=== PATIENT | female | born 1955 | race Hispanic/Latino ===

== ENCOUNTER 2017-07-08 22:14 | Emergency (ER) | payer MEDICARE | END 2017-07-08 23:23 | disposition home or self-care (01) | LOC: EDH 22:14 | DX: L02.211 Cutaneous abscess of abdominal wall (principal); E11.9 Type 2 diabetes mellitus without complications; E78.5 Hyperlipidemia, unspecified; I10 Essential (primary) hypertension; Z79.4 Long term (current) use of insulin; Z86.73 Personal history of transient ischemic attack (TIA), and cerebral infarction without residual deficits | CPT/HCPCS: 10060 ==

== ENCOUNTER 2017-09-17 09:40 | Emergency (ER) | payer MEDICARE ==
[2017-09-17 10:13] LABS: BASOPHILS % (AUTO) 0.7 % (0.0-5.0); HEMATOCRIT 37.3 % (36-48); LYMPHOCYTES % (AUTO) 19.3 % (21.0-51.0); MEAN CORPUSCULAR HEMOGLOBIN 28.1 pg (27.0-33.0); MEAN CORPUSCULAR HGB CONC 33.2 g/dL (32.0-36.0); MEAN CORPUSCULAR VOLUME 84.7 fL (79-99); MONOCYTES % (AUTO) 12.1 % (3.0-13.0); NEUTROPHILS % (AUTO) 66.9 % (40.0-77.0); PLATELET COUNT (AUTO) 333 K/uL (130-400); RED BLOOD CELL COUNT(AUTO) 4.41 MIL/uL (4.00-5.50); RED CELL DISTRIBUTION WIDTH 13.8 % (11.0-15.5); WHITE BLOOD COUNT (AUTO) 6.9 K/uL (4.8-10.8)
[2017-09-17 10:22] LABS: INR 0.95 (0.85-1.15)
[2017-09-17 10:23] LABS: CARBON DIOXIDE 27 mmol/L (21-32); CHLORIDE 100 mmol/L (101-111); GLOMERULAR FILTR. RATE CALC 60 mL/min (>60); GLUCOSE,RANDOM 164 mg/dL (70-105); POTASSIUM 4.5 mmol/L (3.5-5.1); SODIUM SERUM 135 mmol/L (136-145); UREA NITROGEN, BLOOD 17 mg/dL (7-18)
[2017-09-17 10:32] LABS: APPEARANCE,URINE Clear (CLEAR); BILIRUBIN,URINE Negative (NEGATIVE); COLOR,URINE Yellow (YELLOW); GLUCOSE, URINE (UA) Negative (NEGATIVE); KETONES,URINE Negative (NEGATIVE); LEUKOCYTE ESTERASE ,URINE Moderate (NEGATIVE); NITRATE,URINE Positive (NEGATIVE); OCCULT BLOOD,URINE Trace (NEGATIVE); PROTEIN,URINE Trace (NEGATIVE)
[2017-09-17 10:35] LABS: ALANINE AMINOTRANSFERASE 38 U/L (12-78); ALBUMIN 3.6 g/dL (3.5-5.0); AMYLASE 62 U/L (25-115); ASPARTATE AMINOTRANSFERASE 23 U/L (10-37); BILIRUBIN,TOTAL 0.2 mg/dL (0.2-1.0); CREATINE KINASE MB < 0.5 ng/mL (0.5-3.6); CREATINE KINASE, TOTAL 34 U/L (21-232); LIPASE 216 U/L (114-286)
[2017-09-17 10:38] LABS: BACTERIA,URINE Moderate /HPF (None Seen); RBC,URINE 0-1 /HPF (0-1); SQUAMOUS EPITHELIAL CELL,UR Few /HPF (0-2); YEAST,URINE BUDDING Few /HPF (None Seen)
[2017-09-17] MEDS ORDERED: LEVOFLOXACIN 500 MG/D5W 100 ML 100 ML ONE (12:54)
[2017-09-17] MEDS ORDERED: SODIUM CHLORIDE 0.9% 1000ML 1,000 ML IV ONE (12:54)
== END 2017-09-17 15:13 | disposition home or self-care (01) ==
LOC: EDH 09:40
DX: N39.0 Urinary tract infection, site not specified (principal); K52.9 Noninfective gastroenteritis and colitis, unspecified; E86.0 Dehydration; E11.9 Type 2 diabetes mellitus without complications; E78.5 Hyperlipidemia, unspecified; I10 Essential (primary) hypertension; Z79.4 Long term (current) use of insulin; Z86.73 Personal history of transient ischemic attack (TIA), and cerebral infarction without residual deficits
CPT/HCPCS: 36415; 80053; 81001; 82150; 82550; 82553; 83690; 84484; 85025; 85610; 85730; 87088; 87186; 93005; 96365; 99285; J1956; J7030

== ENCOUNTER 2018-03-06 16:20 | Emergency (ER) | payer MEDICARE ==
[2018-03-06] MEDS ORDERED: KETOROLAC TROMETHAMINE 60 MG/2 ML VIAL ONE (17:03)
== END 2018-03-06 17:35 | disposition home or self-care (01) ==
LOC: EDH 16:20
DX: M54.6 Pain in thoracic spine (principal); M62.838 Other muscle spasm; I10 Essential (primary) hypertension; E78.5 Hyperlipidemia, unspecified; E11.9 Type 2 diabetes mellitus without complications; Z86.73 Personal history of transient ischemic attack (TIA), and cerebral infarction without residual deficits; Z79.4 Long term (current) use of insulin
CPT/HCPCS: 96372; 99283; J1885

== ENCOUNTER 2018-05-30 13:29 | Observation (INO) | payer MEDICARE ==
[~2018-05-30] VITALS: Ht 160 cm; Wt 74.4 kg
[2018-05-30 15:15] LABS: BASOPHILS % (AUTO) 0.2 % (0.0-5.0); EOSINOPHILS % (AUTO) 0.7 % (0.0-8.0); HEMATOCRIT 32.7 % (36-48); LYMPHOCYTES % (AUTO) 12.6 % (21.0-51.0); MEAN CORPUSCULAR HEMOGLOBIN 28.2 pg (27.0-33.0); MEAN CORPUSCULAR VOLUME 85.5 fL (79-99); MONOCYTES % (AUTO) 10.4 % (3.0-13.0); NEUTROPHILS % (AUTO) 76.1 % (40.0-77.0); PLATELET COUNT (AUTO) 308 K/uL (130-400); RED BLOOD CELL COUNT(AUTO) 3.82 MIL/uL (4.00-5.50); RED CELL DISTRIBUTION WIDTH 13.9 % (11.0-15.5); WHITE BLOOD COUNT (AUTO) 12.6 K/uL (4.8-10.8)
[2018-05-30 15:30] LABS: POTASSIUM 4.6 mmol/L (3.5-5.1)
[2018-05-30 15:34] LABS: ALBUMIN 3.1 g/dL (3.5-5.0); BILIRUBIN,TOTAL 0.3 mg/dL (0.2-1.0); TOTAL PROTEIN, SERUM 7.1 g/dL (6.0-8.3)
[2018-05-30 15:35] LABS: CREATINE KINASE, TOTAL 93 U/L (21-232); MYOGLOBIN 28 ng/mL (10-92); TROPONIN I < 0.04 ng/mL (0.00-0.06)
[2018-05-30 16:35] LABS: APPEARANCE,URINE Cloudy (CLEAR); BILIRUBIN,URINE Negative (NEGATIVE); COLOR,URINE Yellow (YELLOW); GLUCOSE, URINE (UA) Negative (NEGATIVE); KETONES,URINE Trace mg/dL (NEGATIVE); LEUKOCYTE ESTERASE ,URINE Large (NEGATIVE); NITRATE,URINE Positive (NEGATIVE); OCCULT BLOOD,URINE Small (NEGATIVE); PROTEIN,URINE Negative (NEGATIVE)
[2018-05-30 16:55] LABS: BACTERIA,URINE Moderate /HPF (None Seen); RBC,URINE None Seen /HPF (0-1)
[2018-05-30] MEDS ORDERED: CEFTRIAXONE SODIUM 1 GM ONE (17:12)
[2018-05-30 17:41] LABS: INR 1.05 (0.85-1.15); PARTIAL THROMBOPLASTIN TIME 33.9 SEC (26.3-35.5)
[2018-05-30] MEDS: 1/2 NORMAL SALINE 1,000 ML IV SCH (18:00)
[2018-05-30] MEDS ORDERED: ENOXAPARIN SODIUM 30 MG/0.3 ML SQ SCH (18:00)
[2018-05-30] MEDS ORDERED: ACETAMINOPHEN EXTRA STRENGTH 500 MG TABLET ONE (19:40)
[2018-05-30] MEDS ORDERED: 1/2 NORMAL SALINE 1,000 ML IV ONE (19:41)
[2018-05-31 01:20] VITALS: BP 147/70
[2018-05-31] MEDS ORDERED: METF-446 PO (02:28)
[2018-05-31] MEDS ORDERED: SOTA80TA PO (02:28)
[2018-05-31] MEDS ORDERED: DILT120C12 PO (02:28)
[2018-05-31] MEDS ORDERED: LEVO50TA11 PO (02:31)
[2018-05-31] MEDS ORDERED: ATOR40TA71 PO (02:31)
[2018-05-31] MEDS ORDERED: LOSA25TA41 PO (02:31)
[2018-05-31] MEDS ORDERED: INSU10VI3 SQ ×2 (02:33)
[2018-05-31] MEDS ORDERED: APIX5TAB PO (02:33)
[2018-05-31] MEDS ORDERED: ACET-66 PO (02:36)
[2018-05-31] MEDS ORDERED: ACETAMINOPHEN 325 MG TAB PO PRN (03:15)
[2018-05-31] MEDS ORDERED: MORPHINE SULFATE 2 MG/ML 1ML SYG IVP PRN (03:15)
[2018-05-31 04:00] VITALS: BP 115/87
[2018-05-31 05:13] LABS: BASOPHILS % (AUTO) 0.4 % (0.0-5.0); CREATININE 0.8 mg/dL (0.5-1.5); EOSINOPHILS % (AUTO) 1.3 % (0.0-8.0); HEMATOCRIT 30.8 % (36-48); LYMPHOCYTES % (AUTO) 23.4 % (21.0-51.0); MEAN CORPUSCULAR HEMOGLOBIN 28.6 pg (27.0-33.0); MEAN CORPUSCULAR HGB CONC 33.4 g/dL (32.0-36.0); MEAN CORPUSCULAR VOLUME 85.6 fL (79-99); NEUTROPHILS % (AUTO) 63.9 % (40.0-77.0); NUCLEATED RED BLOOD CELLS 0.1 % (0.0-0.19); PLATELET COUNT (AUTO) 248 K/uL (130-400); POTASSIUM 3.9 mmol/L (3.5-5.1); RED CELL DISTRIBUTION WIDTH 13.8 % (11.0-15.5); WHITE BLOOD COUNT (AUTO) 8.1 K/uL (4.8-10.8)
[2018-05-31 08:04] VITALS: BP 146/73
[2018-05-31] MEDS: LEVOTHYROXINE 50 MCG TABLET PO SCH ×2 (09:00→09:42)
[2018-05-31] MEDS: CEFTRIAXONE SODIUM 1 GM IVP SCH (09:42)
[2018-05-31] MEDS: ATORVASTATIN CALCIUM 40 MG TABLET PO SCH (09:42)
[2018-05-31] MEDS: APIXABAN 5 MG TABLET PO SCH ×2 (09:42→21:00)
[2018-05-31] MEDS: SOTALOL HCL 80 MG TABLET PO SCH ×3 (09:43→21:00)
[2018-05-31] MEDS: DILTIAZEM HCL 120 MG CAP.SR.24H PO SCH ×2 (09:43→16:56)
[2018-05-31] MEDS: METFORMIN HCL 500 MG TABLET PO SCH ×2 (09:43→16:25)
[2018-05-31] MEDS: LOSARTAN 50 MG TABLET PO SCH (09:43)
[2018-05-31] MEDS: INSULIN HUMULIN 70/30 100 UNIT/ML 3ML SQ SCH (09:46)
[2018-05-31 11:03] VITALS: BP 140/62
[2018-05-31] MEDS: 1/2 NORMAL SALINE 1,000 ML IV SCH ×3 (11:05→23:15)
--- NOTE | 2018-05-31 14:14 | NUR ---
Nutrition Intervention: Nutrition notification as admit trigger. Pt admitted for sepsis, UTI. Currently on [id number] diet with good oral intake. Pt with no nutritional concerns with n/v/d, chewing or swallowing problems. LBM 05/31. Alb 3.1. Recommendations: Continue current diet therapy. Consult RD as nutrition concerns arise.
[2018-05-31 16:50] VITALS: BP 160/70
[2018-05-31] MEDS ORDERED: INSULIN HUMULIN 70/30 100 UNIT/ML 3ML SQ SCH (17:00)
[2018-05-31 20:00] VITALS: BP 143/60
--- NOTE | 2018-05-31 21:00 | NUR ---
MEDS PT REFUSED THE EVENING DOSE OF HER SOTALOL, CLAIMS OF TAKING IT A DOSE IN THE AFTERNOON. EXPLAINED THAT SHE WILL BE UNDERDOSED TODAY IF SHE WILL NOT TAKE HER EVENING MED. PT STATED SHE WILL TAKE MED IN AM. DUE ELIQUIS ADMINISTERED. KEPT RESTED AND COMFORTABLE IN BED. CALL LIGHT WITHIN REACH. FAMILY AT BEDSIDE. WILL MONITOR PT.
[2018-06-01] VITALS: BP 128/54
--- NOTE | 2018-06-01 02:00 | NUR ---
ROUNDS PT RESTING WELL, FAIRLY ASLEEP WITH RESPIRATIONS EVEN AND UNLABORED. NO NOTED DISTRESS. KEPT UNDISTURBED. WILL MONITOR PT.
[2018-06-01 04:00] VITALS: BP 142/64
[2018-06-01 04:04] LABS: BASOPHILS % (AUTO) 0.4 % (0.0-5.0); EOSINOPHILS % (AUTO) 3.9 % (0.0-8.0); HEMATOCRIT 29.6 % (36-48); LYMPHOCYTES % (AUTO) 31.4 % (21.0-51.0); MEAN CORPUSCULAR HEMOGLOBIN 28.1 pg (27.0-33.0); MEAN CORPUSCULAR HGB CONC 32.6 g/dL (32.0-36.0); MEAN CORPUSCULAR VOLUME 86.3 fL (79-99); MONOCYTES % (AUTO) 12.2 % (3.0-13.0); NEUTROPHILS % (AUTO) 52.1 % (40.0-77.0); PLATELET COUNT (AUTO) 269 K/uL (130-400); RED BLOOD CELL COUNT(AUTO) 3.43 MIL/uL (4.00-5.50)
[2018-06-01 05:07] LABS: CREATININE 0.8 mg/dL (0.5-1.5); POTASSIUM 3.9 mmol/L (3.5-5.1)
[2018-06-01] MEDS: CEFTRIAXONE SODIUM 1 GM IVP SCH (05:24)
--- NOTE | 2018-06-01 06:00 | NUR ---
ROUNDS PT ALREADY AWAKE, NO CONCERNS VERBALIZED. NO DISTRESS NOTED. KEPT RESTED. FOR MORE CARE.
--- NOTE | 2018-06-01 06:36 | NUR ---
MD DR ESTRELLA MEDS ROUNDS WITH D/C ORDERS. PLEASE REFER TO CPOE.
[2018-06-01] MEDS: DILTIAZEM HCL 120 MG CAP.SR.24H PO SCH (09:18)
[2018-06-01] MEDS: METFORMIN HCL 500 MG TABLET PO SCH (09:18)
[2018-06-01] MEDS: LEVOTHYROXINE 50 MCG TABLET PO SCH (09:18)
[2018-06-01] MEDS: ATORVASTATIN CALCIUM 40 MG TABLET PO SCH (09:18)
[2018-06-01] MEDS: SOTALOL HCL 80 MG TABLET PO SCH (09:18)
[2018-06-01] MEDS: APIXABAN 5 MG TABLET PO SCH (09:18)
[2018-06-01] MEDS: LOSARTAN 50 MG TABLET PO SCH (09:18)
[2018-06-01] MEDS: INSULIN HUMULIN 70/30 100 UNIT/ML 3ML SQ SCH (09:20)
[2018-06-01 09:36] VITALS: BP 140/67
--- NOTE | 2018-06-01 10:35 | NUR ---
DISCHARGE PATIENT GIVEN DISCHARGE INSTRUCTIONS AND EDUCATION, RX GIVEN TO THEM BY MD AND DAUGHTER ALREADY FILLED THIS AM. NO QUESTIONS RO CONCERNS VOICED AT THIS TIME. IV DISCONTINUED. CATHETER INTACT. NO SIGNS OF DISTRESS NOTED UPON DISCHARGE. PATIENT LEFT VIA WHEELCHAIR TO PRIVATE CAR WITH DAUGHTER AT SIDE. ALL BELONGINGS TAKEN. Addendum: 06/01/18 at 1102 by LUDA VALENZUELA RN RN Amended: Links added.
--- NOTE | 2018-06-01 10:51 | NUR ---
CM PT DCD TO HOME, STABLE NO CONCERNS VOICED BY PATIENT TO NURSE, NO TRIGGERS FOR CM. Addendum: 06/01/18 at 1053 by ERMIAS ARAGON RN CM Amended: Links added.
== END 2018-06-01 10:07 | disposition home or self-care (01) ==
LOC: EDH 13:29 → EDHIP 17:40 → 4CH 05-31 01:26
PROVIDERS: ADMIT Internal Medicine; ATTEND Internal Medicine
DX: N12 Tubulo-interstitial nephritis, not specified as acute or chronic (principal); R19.7 Diarrhea, unspecified; E11.9 Type 2 diabetes mellitus without complications; A41.9 Sepsis, unspecified organism; E78.5 Hyperlipidemia, unspecified; I10 Essential (primary) hypertension; I48.91 Unspecified atrial fibrillation; M19.90 Unspecified osteoarthritis, unspecified site; Z79.01 Long term (current) use of anticoagulants; Z86.73 Personal history of transient ischemic attack (TIA), and cerebral infarction without residual deficits
CPT/HCPCS: 36415 ×3; 71045; 80048 ×2; 80053; 81001; 82550; 82948 ×5; 83605 ×2; 83874; 84484; 85025 ×3; 85610; 85730; 87040; 87077; 87088; 87186; 87804 ×2; 87880; 93005; 96361 ×2; 96372 ×2; 96374; 96376; 99284; A4218 ×2; G0378 ×40; J0696 ×3; J1815 ×3

== ENCOUNTER 2018-09-30 10:46 | Inpatient (IN) | payer MEDICARE ==
[~2018-09-30] VITALS: Ht 154.9 cm; Wt 71.9 kg
[~2018-09-30 10:46] MED LIST: ACET-66 PO; APIX5TAB PO; ATOR40TA71 PO; DILT120C12 PO; INSU10VI3 SQ; LEVO50TA11 PO; LOSA25TA41 PO; METF-446 PO; SOTA80TA PO
[2018-09-30] MEDS ORDERED: MEROPENEM 500 MG VIAL ONE (12:03)
[2018-09-30] MEDS ORDERED: SODIUM CHLORIDE 0.9% 100 ML IV ONE (12:04)
[2018-09-30 13:20] VITALS: BP 148/80
[2018-09-30] MEDS ORDERED: ONDANSETRON HCL 4 MG/2 ML VIAL IVP PRN (14:00)
[2018-09-30 15:50] VITALS: BP 166/75
[2018-09-30] MEDS ORDERED: DIPH,PERTUSS(ACELL),TET VAC/PF 0.5 ML VIAL IM ONE (16:00)
[2018-09-30] MEDS ORDERED: VANCOMYCIN PROTOCOL PER PHARMACY IV SCH (16:00)
--- NOTE | 2018-09-30 16:35 | NUR ---
NURSING NOTE Received patient from ER in no distress, accompanied by her daughter Yaquelin. Patient assisted to bed. Orientation and admission done. Dr. Castro on the case. He came and obtained a sample from right 4th toe ulcer at amputation site and took sample to laboratory. Daughter made aware that medications need frequencies; stated she will have family member bring them.
[2018-09-30] MEDS ORDERED: SODIUM CHLORIDE 0.9% 250 ML IV ONE (18:09)
--- NOTE | 2018-09-30 18:30 | NUR ---
PICTURES Obtained pictures of both feet and filed in chart.
[2018-09-30] MEDS: VANCOMYCIN 1GM+NS 250ML 250 ML IV SCH (18:38)
[2018-09-30 19:00] VITALS: BP 149/70
[2018-09-30] MEDS: INSULIN HUMULIN R 100 UNIT/ML 3ML SQ SCH (20:36)
[2018-09-30 23:20] VITALS: BP 145/61
[2018-09-30] MEDS ORDERED: DULA1.5P SQ (23:43)
[2018-10-01 03:25] VITALS: BP 155/73
[2018-10-01 04:36] LABS: HEMATOCRIT 30.8 % (36-48); MEAN CORPUSCULAR HEMOGLOBIN 26.7 pg (27.0-33.0); MEAN CORPUSCULAR HGB CONC 32.6 g/dL (32.0-36.0); MEAN CORPUSCULAR VOLUME 81.9 fL (79-99); PLATELET COUNT (AUTO) 362 K/uL (130-400); RED BLOOD CELL COUNT(AUTO) 3.76 MIL/uL (4.00-5.50); WHITE BLOOD COUNT (AUTO) 7.1 K/uL (4.8-10.8)
[2018-10-01 04:55] LABS: ALBUMIN 3.1 g/dL (3.5-5.0); BILIRUBIN,TOTAL 0.3 mg/dL (0.2-1.0); CREATININE 0.9 mg/dL (0.5-1.5); POTASSIUM 4.4 mmol/L (3.5-5.1); TOTAL PROTEIN, SERUM 7.1 g/dL (6.0-8.3)
[2018-10-01] MEDS: INSULIN HUMULIN R 100 UNIT/ML 3ML SQ SCH ×4 (06:10→21:00)
[2018-10-01] MEDS: LEVOTHYROXINE 50 MCG TABLET PO SCH (08:54)
[2018-10-01] MEDS: APIXABAN 5 MG TABLET PO SCH ×2 (08:54→21:00)
[2018-10-01] MEDS: METFORMIN HCL 500 MG TABLET PO SCH ×2 (08:54→17:00)
[2018-10-01] MEDS: SOTALOL HCL 80 MG TABLET PO SCH ×2 (08:55→21:20)
[2018-10-01] MEDS: MEROPENEM 500 MG VIAL IVP SCH (08:55)
--- NOTE | 2018-10-01 08:56 | NUR ---
SOTALOL Refused morning medication stating her doctor changed her dose to once a day S/T she was getting dizzy. States her current dose is 80mg PO daily and that she is supposed to take it in the evening before dinner.
[2018-10-01] MEDS ORDERED: SOTA80TA PO (09:00)
[2018-10-01] MEDS ORDERED: ENOXAPARIN SODIUM 40 MG/0.4 ML SYRINGE SQ SCH (09:00)
[2018-10-01 09:05] VITALS: BP 123/63
[2018-10-01] MEDS: INSULIN HUMULIN 70/30 100 UNIT/ML 3ML SQ SCH ×2 (09:13→17:00)
[2018-10-01 12:04] VITALS: BP 131/71
--- NOTE | 2018-10-01 13:41 | NUR ---
Nutrition Intervention: Nutrition notification for decreased appetite as per pt's request. Pt admitted for diabetic right foot ulcer. Pt currently on CCD 75gm diet with 100% intake. Pt with toe amputation about 1month ago, reports unintended wt loss since then. Pt's son at bedside reports concerns for wt loss because pt decreased po intake. Pt states she feels better and appetite has returned. Emotional health may have contributed to decreased appetite as son reports pt was sad and may have gotten depressed after amputation. Will continue to monitor pt's nutritional status. Pt encouraged to eat high nutritious food to assist with wound healing. Recommendations: Continue current diet therapy. Consult [facility] as nutrition concerns arise. Addendum: 10/01/18 at [address] Amended: Links added.
[2018-10-01 15:59] VITALS: BP 155/76
--- NOTE | 2018-10-01 16:50 | NUR ---
HEALTH EDUCATOR Dr. Pickering at bedside doing dressing change and will do surgery tomorrow.
--- NOTE | 2018-10-01 17:02 | NUR ---
DIABETIC FOOT EDUCATION Printed education and gave to patient's daughter at bedside.
[2018-10-01] MEDS: VANCOMYCIN 1GM+NS 250ML 250 ML IV SCH (17:14)
--- NOTE | 2018-10-01 17:19 | NUR ---
CM NOTE cm attempted to speak to pt regarding d/c planning. Pt tearful and asked CM to return another time. CM to reattempt visit tomorrow.
--- NOTE | 2018-10-01 17:20 | NUR ---
BLOOD SUGAR Level is 87mg/dL. Patient refused her scheduled 70/30 insulin and her metformin. Patient is on regular insulin sliding scale # 2. Dr. Nogueira was paged to notify him and to request parameters; possibly decrease to sliding scale # 1.
[2018-10-01] MEDS ORDERED: GLUCAGON 1MG KIT 1 MG ML IM PRN (17:30)
[2018-10-01] MEDS ORDERED: DEXTROSE 50%-WATER 50 ML DISP.SYRIN IV PRN (17:30)
[2018-10-01 19:00] VITALS: BP 170/78
--- NOTE | 2018-10-01 19:45 | NUR ---
PM Assessment Received with family at the bedside, routine assessment done, plan of care discuss, confirm awareness re: plan surgery in AM, NPO post MN re-instructed. Pt currently denies discomfort, agreed to take a shower in AM at 0500.
--- NOTE | 2018-10-01 19:50 | NUR ---
CONSENT Obtained consent for surgery as ordered by Dr. Pickering and filed in chart. Also, obtained consent for disposal of amputated body part and in chart.
[2018-10-01] MEDS: ATORVASTATIN CALCIUM 40 MG TABLET PO SCH (21:20)
--- NOTE | 2018-10-01 21:25 | NUR ---
Re: Isidro Scheduled Isidro held tonight as pt scheduled for surgery for tomorrow.
[2018-10-01 23:25] VITALS: BP 141/68
[2018-10-02] VITALS (21 sets, daily range): BP systolic 111–186; BP diastolic 54–82
[2018-10-02] MEDS ORDERED: HYDROMORPHONE HCL 2 MG/ML VIAL IVP PRN (05:15)
[2018-10-02] MEDS: INSULIN HUMULIN R 100 UNIT/ML 3ML SQ SCH ×4 (05:48→21:00)
[2018-10-02] MEDS: METFORMIN HCL 500 MG TABLET PO SCH ×2 (07:28→18:05)
[2018-10-02] MEDS: APIXABAN 5 MG TABLET PO SCH ×2 (07:28→20:20)
[2018-10-02] MEDS: LEVOTHYROXINE 50 MCG TABLET PO SCH (07:28)
[2018-10-02] MEDS: INSULIN HUMULIN 70/30 100 UNIT/ML 3ML SQ SCH ×2 (07:28→18:10)
--- NOTE | 2018-10-02 08:32 | NUR ---
H&P Called (on-call for ) to inform him patient needs H&P because she is going for surgery. stated to call Dr. Tomlin because he had admitted patient. Informed that he is on-call for . stated to call to his cell and inform him;that would answer his cellphone. Left voicemail for explaining situation and to call nurse back at [phone]. Pending for to call back.
--- NOTE | 2018-10-02 09:35 | NUR ---
UPDATE Dr. Nogueira came and was updated. Stated he willdo H&P. Medical Records updated to put it on fast track.
[2018-10-02] MEDS: SOTALOL HCL 80 MG TABLET PO SCH ×2 (09:47→20:20)
[2018-10-02] MEDS: MEROPENEM 500 MG VIAL IVP SCH (09:47)
[2018-10-02] MEDS ORDERED: BUPIVACAINE/PF 0.5% 30ML VIAL ONE (10:08)
[2018-10-02] MEDS ORDERED: LIDOCAINE HCL 1% 20 ML VIAL ONE (10:08)
[2018-10-02] MEDS ORDERED: FENTANYL CITRATE PF 50 MCG/1 ML 2ML VIAL ONE (10:42)
[2018-10-02] MEDS ORDERED: MIDAZOLAM HCL 1 MG/ML 2ML VIAL ONE (10:42)
[2018-10-02] MEDS ORDERED: MORPHINE SULFATE 2 MG/ML 1ML SYG IVP PRN (16:45)
--- NOTE | 2018-10-02 17:05 | NUR ---
D/C PLAN CM spoke to pt and family regarding d/c planning. Pt states she lives alone. Denies having any home health services. States daughter named Yaquelin was assisting with wound care. Pt states she has provider who assists in care as well. Pt has been using cane for ambulation and denies having any other DME. CM explained possible need for short term SNF/rehab vs possibly returning home with home health. Pt is agreeable to MD recommendations. CM to f/u with final MD discharge recommendations. Addendum: 10/02/18 at 1708 by BRANDY ROLAND Amended: Links added.
[2018-10-02] MEDS: VANCOMYCIN 1GM+NS 250ML 250 ML IV SCH (18:05)
--- NOTE | 2018-10-02 18:59 | NUR ---
NURSING NOTE Patient went to have surgery for amputation of 3rd toe and third and 4th knuckles. Came back with wound vac at 125mmHg with small amount of serosanguinous drainage. Patient has been stable. Denied any pain or any need for pain medication. New hep lock to right forearm # 20g started for IV vancomycin administration. Site to left forearm removed; no issues.
[2018-10-02] MEDS: ATORVASTATIN CALCIUM 40 MG TABLET PO SCH (20:20)
[2018-10-03 03:00] VITALS: BP 135/55
[2018-10-03] MEDS: INSULIN HUMULIN R 100 UNIT/ML 3ML SQ SCH ×4 (06:33→21:00)
[2018-10-03 07:00] VITALS: BP 118/54
[2018-10-03] MEDS: MEROPENEM 500 MG VIAL IVP SCH (08:47)
[2018-10-03] MEDS: METFORMIN HCL 500 MG TABLET PO SCH ×2 (08:47→17:45)
[2018-10-03] MEDS: APIXABAN 5 MG TABLET PO SCH ×2 (08:49→19:56)
[2018-10-03] MEDS: SOTALOL HCL 80 MG TABLET PO SCH ×2 (08:49→19:57)
[2018-10-03] MEDS: LEVOTHYROXINE 50 MCG TABLET PO SCH (08:50)
[2018-10-03] MEDS: INSULIN HUMULIN 70/30 100 UNIT/ML 3ML SQ SCH ×2 (08:58→17:32)
[2018-10-03] MEDS: MORPHINE SULFATE 2 MG/ML 1ML SYG IVP PRN (10:36)
[2018-10-03 11:00] VITALS: BP 118/61
--- NOTE | 2018-10-03 14:30 | NUR ---
MD ROUNDS DR. DUFF ROUNDED AND RECOMMENDED PATIENT TO GO TO [facility] FOR WOUND CARE AND ANTIBIOTIC TREATMENTS. PER PATIENT AND DAUGHTER, DO NOT WANT TO TRANSFER TO A FACILITY AND WOULD LIKE TO BE DISCHARGED HOME. PER DAUGHTER, PATIENT'S HOME IS HANDICAP ACCESSIBLE AND SHE WILL BE ATTENDING THE PATIENT'S NEEDS. PATIENT AND FAMILY REQUESTING HOME HEALTH FOR ANTIBIOTICS AND WOUND CARE. PER DR. DUFF, THAT WILL BE FIND WELL, BUT HAVE DR. ESTRELLA MAKE THE FINAL DECISION.
--- NOTE | 2018-10-03 15:00 | NUR ---
dc planning spoke to pt again and to daughter that I spoke to Dr Castro and states he recommended to pt and daughter to go to [facility], for wound care and antibiotic therapy. they both wish to go home. do not want to go to any facility. daughter states she is able to take her and bring her to [facility] or wound care center as needed. and request set up with home health for wound care and iv antibiotics, pt has a wound vac in [facility]. will need to follwoup with dr tubbs and clarify final IV antiobiotic needs.
[2018-10-03 16:00] VITALS: BP 149/67
[2018-10-03] MEDS: VANCOMYCIN 1GM+NS 250ML 250 ML IV SCH ×2 (18:25→19:00)
[2018-10-03] MEDS: ATORVASTATIN CALCIUM 40 MG TABLET PO SCH (19:57)
[2018-10-03 20:59] VITALS: BP 157/69
[2018-10-03 23:37] VITALS: BP 123/53
[2018-10-04] MEDS: MORPHINE SULFATE 2 MG/ML 1ML SYG IVP PRN (01:34)
[2018-10-04 03:52] VITALS: BP 157/72
[2018-10-04] MEDS: HYDROMORPHONE HCL 0.5 MG/0.5 ML ML IVP PRN ×2 (04:53→22:14)
[2018-10-04] MEDS: INSULIN HUMULIN R 100 UNIT/ML 3ML SQ SCH ×4 (06:18→21:00)
[2018-10-04] MEDS: VANCOMYCIN 1GM+NS 250ML 250 ML IV SCH ×2 (06:18→20:20)
[2018-10-04 07:00] VITALS: BP 153/70
[2018-10-04] MEDS: LEVOTHYROXINE 50 MCG TABLET PO SCH (07:23)
[2018-10-04] MEDS: INSULIN HUMULIN 70/30 100 UNIT/ML 3ML SQ SCH ×2 (09:34→17:40)
[2018-10-04] MEDS: SOTALOL HCL 80 MG TABLET PO SCH ×2 (09:35→20:20)
[2018-10-04] MEDS: APIXABAN 5 MG TABLET PO SCH ×2 (09:35→20:20)
[2018-10-04] MEDS: MEROPENEM 500 MG VIAL IVP SCH (09:35)
[2018-10-04] MEDS: METFORMIN HCL 500 MG TABLET PO SCH ×2 (09:37→17:36)
[2018-10-04 11:00] VITALS: BP 115/60
[2018-10-04 16:00] VITALS: BP_SYST 115; BP_SYST 121; BP_SYST 150; BP_DIAS 63; BP_DIAS 72; BP_DIAS 93
[2018-10-04 20:00] VITALS: BP 139/67
[2018-10-04] MEDS: ATORVASTATIN CALCIUM 40 MG TABLET PO SCH (20:20)
--- NOTE | 2018-10-04 20:59 | NUR ---
POC POC blood sugar 44,pt asymptomatic.Stat gluose ordered.Pt given food.
--- NOTE | 2018-10-04 21:52 | NUR ---
RECHECK Blood sugar rechecked 90.
--- NOTE | 2018-10-04 22:23 | NUR ---
SEVERE PAIN Pt c/o severe pain to rt foot,medicated with Dilaudid.
--- NOTE | 2018-10-04 23:23 | NUR ---
MED EFFECT Pt resting quietly in bed,respirations even and unlabored.
[2018-10-05] VITALS (7 sets, daily range): BP systolic 127–159; BP diastolic 58–73
[2018-10-05] MEDS: HYDROCODONE/ACETAMINOPHEN 5/325 MG TAB PO PRN ×3 (05:32→22:41)
[2018-10-05] MEDS: INSULIN HUMULIN R 100 UNIT/ML 3ML SQ SCH ×4 (05:36→20:38)
[2018-10-05] MEDS ORDERED: LEVOTHYROXINE 50 MCG TABLET ONE (06:16)
[2018-10-05] MEDS: LEVOTHYROXINE 50 MCG TABLET PO SCH (06:18)
--- NOTE | 2018-10-05 06:34 | NUR ---
MD Dr Tomlin came to see pt.He's awaiting for Dr Castro to decide if pt can go home on po antibiotic.
--- NOTE | 2018-10-05 06:36 | NUR ---
VANCOMYCIN VANCOMYCIN DUE at 0700 not given yet,awaiting for Vanco through result drawn at 0600.
[2018-10-05] MEDS ORDERED: COMPOUND IV REFRIGERATED 1 EACH IVSOLN MISC PRN (08:00)
[2018-10-05] MEDS: MEROPENEM 500 MG VIAL IVP SCH (08:56)
[2018-10-05] MEDS: METFORMIN HCL 500 MG TABLET PO SCH ×2 (08:56→18:42)
[2018-10-05] MEDS: VANCOMYCIN 1GM+NS 250ML 250 ML IV SCH (08:56)
[2018-10-05] MEDS: SOTALOL HCL 80 MG TABLET PO SCH ×2 (09:00→20:36)
[2018-10-05] MEDS: APIXABAN 5 MG TABLET PO SCH ×2 (09:00→20:36)
[2018-10-05] MEDS: INSULIN HUMULIN 70/30 100 UNIT/ML 3ML SQ SCH ×2 (09:28→17:00)
--- NOTE | 2018-10-05 13:46 | NUR ---
PAIN LEVEL OF 6; STATES JUST WANTS NORCO, NO MORPHINE FOR NOW.
[2018-10-05] MEDS: ATORVASTATIN CALCIUM 40 MG TABLET PO SCH (20:36)
[2018-10-05] MEDS: VANCOMYCIN 750MG + NS 250 ML IV SCH ×2 (20:37)
[2018-10-06 04:04] VITALS: BP 128/62
[2018-10-06] MEDS: INSULIN HUMULIN R 100 UNIT/ML 3ML SQ SCH ×4 (06:46→21:00)
[2018-10-06 07:30] VITALS: BP 129/64
[2018-10-06] MEDS: LEVOTHYROXINE 50 MCG TABLET PO SCH (07:30)
[2018-10-06] MEDS: INSULIN HUMULIN 70/30 100 UNIT/ML 3ML SQ SCH ×2 (09:00→17:02)
--- NOTE | 2018-10-06 09:18 | NUR ---
CM Note: [facility] woundvac pending approval and delivery Spoke to Marjorie kitchen/[facility], pt pending approval and delivery. Aware MD pending to sign script and wound measurements, pending [facility] to change woundvac dressing today and for measurements. Primary nurse aware. CM to cont to follow up.
[2018-10-06] MEDS: VANCOMYCIN 750MG + NS 250 ML IV SCH ×4 (09:19→20:54)
[2018-10-06] MEDS: APIXABAN 5 MG TABLET PO SCH ×2 (09:20→20:55)
[2018-10-06] MEDS: MEROPENEM 500 MG VIAL IVP SCH (09:20)
[2018-10-06] MEDS: METFORMIN HCL 500 MG TABLET PO SCH ×2 (09:20→17:02)
[2018-10-06] MEDS: SOTALOL HCL 80 MG TABLET PO SCH ×2 (09:20→20:55)
--- NOTE | 2018-10-06 10:19 | NUR ---
CM Note: [facility] approval and acceptance Spoke to Danae kitchen/[facility], pt has approval and acceptance. Aware pending I approval and delivery and Dr Gloria dsouza for dc abx. Primary nurse aware. CM to cont to follow up.
[2018-10-06 11:00] VITALS: BP 134/58
--- NOTE | 2018-10-06 13:40 | NUR ---
WOUND [facility]ARE [facility] PRESENT TO CHANGE WOUND VAC TO RIGHT FOOT 3RD AND 4TH DIGITS. MEASUREMENTS TAKEN, 3.3 X 3.2 X 3.0. FAULTY CAMERA COULD NOT TAKE PHOTOS. [facility] (DIRECTOR) AWARE. PATIENT STABLE AT THIS TIME.
[2018-10-06] MEDS: HYDROMORPHONE HCL 0.5 MG/0.5 ML ML IVP PRN ×2 (14:12→21:56)
--- NOTE | 2018-10-06 14:44 | NUR ---
[facility] consult Patient assessed as ordered. Wound vac replaced as ordered. 3 pieces of foam used; one for wound and 2 for bridge. Vac resumed at 125mmHg continuous suction. Patient tolerated procedure without adverse effects or complaint. Addendum: 10/06/18 at 1445 by DORI RUSH RN/[facility] Amended: Links added.
[2018-10-06 16:00] VITALS: BP 138/67
[2018-10-06 19:00] VITALS: BP 160/78
[2018-10-06] MEDS: ATORVASTATIN CALCIUM 40 MG TABLET PO SCH (20:55)
[2018-10-07] VITALS (7 sets, daily range): BP systolic 119–160; BP diastolic 56–79
[2018-10-07] MEDS: HYDROMORPHONE HCL 0.5 MG/0.5 ML ML IVP PRN (05:50)
[2018-10-07] MEDS: INSULIN HUMULIN R 100 UNIT/ML 3ML SQ SCH ×4 (05:54→21:00)
[2018-10-07] MEDS: LEVOTHYROXINE 50 MCG TABLET PO SCH (06:01)
[2018-10-07] MEDS: INSULIN HUMULIN 70/30 100 UNIT/ML 3ML SQ SCH ×2 (08:16→18:20)
[2018-10-07] MEDS: METFORMIN HCL 500 MG TABLET PO SCH ×2 (08:19→18:21)
[2018-10-07] MEDS: APIXABAN 5 MG TABLET PO SCH ×2 (08:19→21:53)
[2018-10-07] MEDS: MEROPENEM 500 MG VIAL IVP SCH (08:19)
[2018-10-07] MEDS: SOTALOL HCL 80 MG TABLET PO SCH ×2 (08:19→21:53)
[2018-10-07] MEDS ORDERED: ***HM***(Dulaglutide (Trulicity) 1.5 MG) SQ SCH (09:00)
--- NOTE | 2018-10-07 10:10 | NUR ---
Nutrition Follow-up: Pt. s/p right 3rd toe/metatarsal amputation(10/02/18). Pt. on 75gm CCD diet with HS snack. Pt. reports fair p.o. intake; no c/o N/V. Labs reviewed(Alb 3.1). LBM: 10/04/18. SR-20, elastic. Recommendations: 1) Continue current diet. 2) Continue to monitor pt's nutritional status. 3) Consult RD as nutrition concerns arise. Addendum: 10/07/18 at [address] Amended: Links added.
--- NOTE | 2018-10-07 10:10 | NUR ---
CM Note: [facility] Wound[facility] pending approval and delivery CM spoke to Marjorie kitchen/[facility], received signed script, currently working on equipment at this time. Pending approval and delivery. Primary nurse aware. CM to cont to follow up.
[2018-10-07] MEDS: VANCOMYCIN 750MG + NS 250 ML IV SCH ×4 (11:31→22:00)
[2018-10-07] MEDS: HYDROCODONE/ACETAMINOPHEN 5/325 MG TAB PO PRN ×2 (15:17→22:04)
[2018-10-07] MEDS: ATORVASTATIN CALCIUM 40 MG TABLET PO SCH (21:53)
[2018-10-08] MEDS: HYDROMORPHONE HCL 0.5 MG/0.5 ML ML IVP PRN (00:21)
[2018-10-08 03:42] VITALS: BP 128/64
[2018-10-08] MEDS: INSULIN HUMULIN R 100 UNIT/ML 3ML SQ SCH ×4 (06:27→20:55)
[2018-10-08] MEDS: LEVOTHYROXINE 50 MCG TABLET PO SCH (06:30)
[2018-10-08 08:00] VITALS: BP 160/77
[2018-10-08] MEDS: INSULIN HUMULIN 70/30 100 UNIT/ML 3ML SQ SCH ×2 (09:08→17:00)
[2018-10-08] MEDS: APIXABAN 5 MG TABLET PO SCH ×2 (09:09→21:00)
[2018-10-08] MEDS: METFORMIN HCL 500 MG TABLET PO SCH ×2 (09:10→17:00)
[2018-10-08] MEDS: MEROPENEM 500 MG VIAL IVP SCH (09:10)
[2018-10-08] MEDS: SOTALOL HCL 80 MG TABLET PO SCH ×2 (09:10→21:00)
[2018-10-08] MEDS: VANCOMYCIN 750MG + NS 250 ML IV SCH ×4 (09:11→21:00)
[2018-10-08] MEDS: HYDROCODONE/ACETAMINOPHEN 5/325 MG TAB PO PRN ×3 (10:40→23:37)
[2018-10-08 11:29] VITALS: BP 158/70
--- NOTE | 2018-10-08 15:00 | NUR ---
[facility] Wound Vac: Spoke fidelina Beal @ [facility] this afternoon to f/u on status of wound vac. She mentions that it is pending for delivery and will send a message out to mail sorter and delivery. Primary nurse updated, will continue to follow.
[2018-10-08 16:00] VITALS: BP 148/67
--- NOTE | 2018-10-08 17:53 | NUR ---
[facility] WOUND VAC: Wound Vac at this time is still pending to be delivered, no callback received from delivery route driver either. Called [facility] again spoke w Melba (lead member) requesting update on delivery status. Per Francisco still pending verification from delivery team. States will send message to them. Primary nurse updated and provided w [facility] number.
--- NOTE | 2018-10-08 18:55 | NUR ---
CM note received call from [facility] , and inquired if wound vac needed to be delivered tonight. and informed him yes, that we were just waiting on his delivery of the wound vac to discharge pt today. states that they will deliver wound vac today in approximately 1 1/2 to 2 hrs. updated primary nurse Enriqueta.
--- NOTE | 2018-10-08 19:15 | NUR ---
Re: Wound vac availability Received report from Enriqueta RODRIGUEZ stated that she got a call from [facility] that the wound vac will be delivered more or less in 2 hours. Pt & family at the bedside made aware of this new progress. Pt verbalizes desire to go home tonight once wound vac will be available. I made her aware possibility after 2100 hours.
[2018-10-08 20:00] VITALS: BP 156/72
[2018-10-08] MEDS: ATORVASTATIN CALCIUM 40 MG TABLET PO SCH (20:59)
--- NOTE | 2018-10-08 22:55 | NUR ---
Re: Wound vac Phoned house kody Donovan RN requested assistance who I can call to obtain some information re: this wound vac issue. Benito Donovan RN stated to phoned Customer Service Manager Betina # [phone], done & per Betina stated since wound vac still not available then to keep the pt in house & she will advise the case picker in AM to call [facility]. I went ahead & search [facility] number via [employer], phoned [facility] # [phone] spoke with Amadeo & made him aware that I was inform that the wound vac has been approved & just pending delivery supposedly at 2100 earlier, but till this time we have not received anything. Benito Childs stated he will send notification for their dispatcher to call me FLIP as I made him aware that this is all we are waiting to d/c this case home. I obtain reference # [id number] for this case.
[2018-10-09] VITALS: BP 122/56
[2018-10-09 04:00] VITALS: BP 137/53
[2018-10-09] MEDS: INSULIN HUMULIN R 100 UNIT/ML 3ML SQ SCH (05:56)
[2018-10-09] MEDS: LEVOTHYROXINE 50 MCG TABLET PO SCH (06:39)
[2018-10-09 08:00] VITALS: BP 144/57
--- NOTE | 2018-10-09 08:10 | NUR ---
[facility]OUND[facility]: Informed this morning that wound vac is still pending to be delivered. Called placed to [facility] @ [phone] and spoke w electrical supervisor Ramirez. He was informed that as per conversations w [facility] yesterday wound vac was supposed to be delivered yesterday evening and no further communication was received regarding delay. Per Ramirez he will escalate request and send message to delivery wheel press clerk. Primary nurse updated.
[2018-10-09] MEDS: INSULIN HUMULIN 70/30 100 UNIT/ML 3ML SQ SCH (08:45)
[2018-10-09] MEDS: APIXABAN 5 MG TABLET PO SCH (08:47)
[2018-10-09] MEDS: SOTALOL HCL 80 MG TABLET PO SCH (08:48)
[2018-10-09] MEDS: METFORMIN HCL 500 MG TABLET PO SCH (08:48)
--- NOTE | 2018-10-09 11:15 | NUR ---
DISCHARGE PATIENT GIVEN DISCHARGE INSTRUCTIONS VIA TEACH BACK. 22G PIV TO RFA DISCONTINUED, TIP INTACT. RX GIVEN FOR ANTIBIOTICS AND PAIN MANAGEMENT. PATIENT TO FOLLOW UP WITH PCP AND DR. JACINTO. [facility] TO FOLLOW UP WITH PATIENT FOR WOUND VAC CHANGES TO RIGHT FOOT EVERY M/W/F AND PRN. REPORT GIVEN TO JENNA FRANKLIN RN FROM [facility] ON 10/08/18 AT 1850. [facility] DELIVERED WOUND VAC MACHINE AND SUPPLIES TO PATIENT'S ROOM. WOUND VAC MACHINES WERE EXCHANGED WITH CONTINUOUS SUCTION AT 125mmHg. PATIENT STABLE AT THIS TIME. PATIENT WHEELED DOWNSTAIRS BY LORRAINE VILLEDA ACCOMPANIED BY FAMILY.
== END 2018-10-09 11:15 | disposition home health service (06) | DRG 475 ==
LOC: EDH 10:46 → EDHIP 12:14 → 3AH 13:37
PROVIDERS: ADMIT Internal Medicine; ATTEND Internal Medicine
PROC: 3E0234Z Introduction of Serum, Toxoid and Vaccine into Muscle, Percutaneous Approach (ICD-10-PCS; 2018-09-30)
PROC: 0QBN0ZZ Excision of Right Metatarsal, Open Approach (ICD-10-PCS; 2018-10-02)
PROC: 0Y6M0ZC Detachment at Right Foot, Partial 3rd Ray, Open Approach (ICD-10-PCS; principal; 2018-10-02 11:13)
PROC: 0QBN0ZZ Excision of Right Metatarsal, Open Approach (ICD-10-PCS; 2018-10-02 11:13)
DX: T87.43 Infection of amputation stump, right lower extremity (principal); L03.115 Cellulitis of right lower limb; M86.171 Other acute osteomyelitis, right ankle and foot; L97.519 Non-pressure chronic ulcer of other part of right foot with unspecified severity; I10 Essential (primary) hypertension; D64.9 Anemia, unspecified; E11.69 Type 2 diabetes mellitus with other specified complication; E11.621 Type 2 diabetes mellitus with foot ulcer; E11.51 Type 2 diabetes mellitus with diabetic peripheral angiopathy without gangrene; E66.9 Obesity, unspecified; E78.5 Hyperlipidemia, unspecified; I25.10 Atherosclerotic heart disease of native coronary artery without angina pectoris; I48.91 Unspecified atrial fibrillation; L89.90 Pressure ulcer of unspecified site, unspecified stage; Y83.8 Other surgical procedures as the cause of abnormal reaction of the patient, or of later complication, without mention of misadventure at the time of the procedure; Y83.5 Amputation of limb(s) as the cause of abnormal reaction of the patient, or of later complication, without mention of misadventure at the time of the procedure; E11.42 Type 2 diabetes mellitus with diabetic polyneuropathy; Z79.4 Long term (current) use of insulin; Z83.3 Family history of diabetes mellitus; Z90.710 Acquired absence of both cervix and uterus; Z23 Encounter for immunization; Z89.421 Acquired absence of other right toe(s); Z68.30 Body mass index [BMI] 30.0-30.9, adult
CPT/HCPCS: 36415; 73630; 73718; 80053; 80202; 82947; 82948; 85027; 87070; 87076; 87205; 88304; 88311; 90715; 93926; 97039; G0378; J1170; J1815; J2185; J2250; J3010; J3370; J3490; J7030

== ENCOUNTER 2021-08-26 09:39 | Emergency (ER) | payer MEDICARE ==
[~2021-08-26] VITALS: Ht 154.9 cm; Wt 70.8 kg
[~2021-08-26 09:39] MED LIST changes: -ACET-66 PO; -DILT120C12 PO; +DULA1.5P SQ
[2021-08-26 09:49] VITALS: BP 126/60
[2021-08-26] MEDS ORDERED: ACET-2079 PO (10:29)
[2021-08-26] MEDS ORDERED: HYDROCODONE/ACETAMINOPHEN 10/325 MG TAB PO ONE (10:30)
== END 2021-08-26 10:57 | disposition home or self-care (01) ==
LOC: EDH 09:39
DX: L02.01 Cutaneous abscess of face (principal); E11.9 Type 2 diabetes mellitus without complications; E78.00 Pure hypercholesterolemia, unspecified; Z79.899 Other long term (current) drug therapy; Z79.4 Long term (current) use of insulin; Z79.84 Long term (current) use of oral hypoglycemic drugs; Z98.890 Other specified postprocedural states

== ENCOUNTER → 2021-09-10 | Outpatient (CLI) | payer MEDICARE ==
[~2021-09-10] MED LIST changes: +ACET-2079 PO
== END | disposition home or self-care (01) ==
LOC: SHCH 07:35
PROVIDERS: ATTEND Internal Medicine Cardiovascular Disease
DX: I51.7 Cardiomegaly (principal); R07.9 Chest pain, unspecified
CPT/HCPCS: 93306

== ENCOUNTER → 2021-09-15 | Outpatient (CLI) | payer MEDICARE ==
[~2021-09-15] VITALS: Ht 154.9 cm; Wt 73.5 kg
[~2021-09-15] MED LIST changes: +REGADENOSON 0.4 MG/5 ML PF SYG IVP SCH
== END | disposition home or self-care (01) ==
LOC: SHCH 07:58
PROVIDERS: ATTEND Internal Medicine Cardiovascular Disease
DX: R07.9 Chest pain, unspecified (principal)
CPT/HCPCS: 78452; 93017; 96374; A9500 ×2; J2785

== ENCOUNTER 2021-12-18 18:00 | Emergency (ER) | payer MEDICARE ==
[~2021-12-18] VITALS: Ht 152.4 cm; Wt 69.9 kg
[~2021-12-18 18:00] MED LIST changes: -REGADENOSON 0.4 MG/5 ML PF SYG IVP SCH
[2021-12-18 18:30] LABS: BASOPHILS % (AUTO) 0.5 % (0.0-5.0); EOSINOPHILS % (AUTO) 1.2 % (0.0-8.0); HEMATOCRIT 36.5 % (36-48); LYMPHOCYTES % (AUTO) 23.9 % (21.0-51.0); MEAN CORPUSCULAR HEMOGLOBIN 25.1 pg (27.0-33.0); MEAN CORPUSCULAR HGB CONC 31.8 g/dL (32.0-36.0); MEAN CORPUSCULAR VOLUME 78.8 fL (79-99); MONOCYTES % (AUTO) 11.8 % (3.0-13.0); NEUTROPHILS % (AUTO) 62.2 % (40.0-77.0); PLATELET COUNT (AUTO) 331 K/uL (130-400); RED BLOOD CELL COUNT(AUTO) 4.63 MIL/uL (4.00-5.50); RED CELL DISTRIBUTION WIDTH 15.4 % (11.0-15.5); WHITE BLOOD COUNT (AUTO) 9.7 K/uL (4.8-10.8)
[2021-12-18 18:51] LABS: CREATININE 1.1 mg/dL (0.5-1.5); POTASSIUM 4.5 mmol/L (3.5-5.1)
[2021-12-18 18:55] LABS: ALBUMIN 3.6 g/dL (3.5-5.0); MAGNESIUM 1.4 mg/dL (1.80-2.40)
[2021-12-18 18:57] LABS: B-TYPE NATRIURETIC PEPTIDE 61 pg/mL (0-100)
[2021-12-18 19:27] VITALS: BP 152/58
[2021-12-18] MEDS ORDERED: MORPHINE 2 MG SYG IVP ONE (19:30)
[2021-12-18] MEDS ORDERED: CYCLOBENZAPRINE HCL 10 MG TABLET PO ONE (19:30)
[2021-12-18] MEDS ORDERED: IBUP-1493 PO (20:17)
[2021-12-18] MEDS ORDERED: CYCL-309 PO (20:17)
[2021-12-18] MEDS ORDERED: MAGNESIUM 2GM PREMIX 50ML 50 ML IV SCH (20:30)
[2021-12-18] MEDS ORDERED: LIDOP TP (20:40)
== END 2021-12-18 21:22 | disposition home or self-care (01) ==
LOC: EDH 18:00
DX: M54.6 Pain in thoracic spine (principal); E11.9 Type 2 diabetes mellitus without complications; E78.00 Pure hypercholesterolemia, unspecified; Z98.890 Other specified postprocedural states; Z79.899 Other long term (current) drug therapy; Z79.84 Long term (current) use of oral hypoglycemic drugs; Z79.4 Long term (current) use of insulin; Z79.01 Long term (current) use of anticoagulants
CPT/HCPCS: 36415; 71045; 72040; 73030; 80053; 83735; 83880; 84484; 85025; 85378; 93005; 96374

== ENCOUNTER 2022-03-01 11:43 | Emergency (ER) | payer MEDICARE ==
[~2022-03-01] VITALS: Ht 157.5 cm; Wt 68.9 kg
[~2022-03-01 11:43] MED LIST changes: +CYCL-309 PO; +IBUP-1493 PO; +LIDOP TP
[2022-03-01 12:54] LABS: BASOPHILS % (AUTO) 0.6 % (0.0-5.0); EOSINOPHILS % (AUTO) 1.8 % (0.0-8.0); HEMATOCRIT 36.5 % (36-48); LYMPHOCYTES % (AUTO) 26.3 % (21.0-51.0); MEAN CORPUSCULAR HEMOGLOBIN 26.4 pg (27.0-33.0); MEAN CORPUSCULAR HGB CONC 31.8 g/dL (32.0-36.0); MONOCYTES % (AUTO) 20.9 % (3.0-13.0); PLATELET COUNT (AUTO) 279 K/uL (130-400); RED CELL DISTRIBUTION WIDTH 17.5 % (11.0-15.5); WHITE BLOOD COUNT (AUTO) 6.8 K/uL (4.8-10.8)
[2022-03-01 13:04] LABS: POTASSIUM 4.5 mmol/L (3.5-5.1)
[2022-03-01 13:08] LABS: MAGNESIUM 1.5 mg/dL (1.80-2.40); TOTAL PROTEIN, SERUM 7.1 g/dL (6.0-8.3)
[2022-03-01] MEDS ORDERED: LACTATED RINGERS 1000ML 1,000 ML IV ONE (14:00)
[2022-03-01] MEDS ORDERED: MAGNESIUM 2GM PREMIX 50ML 50 ML IV SCH (14:00)
[2022-03-01] MEDS ORDERED: LEVOFLOXACIN 500 MG TABLET PO SCH (16:00)
[2022-03-01 16:30] VITALS: BP 127/71
[2022-03-01] MEDS ORDERED: LEVO-70 PO (16:40)
[2022-03-01] MEDS ORDERED: DIPH1TAB PO (16:40)
== END 2022-03-01 17:01 | disposition home or self-care (01) ==
LOC: EDH 11:43
DX: A05.9 Bacterial foodborne intoxication, unspecified (principal); R19.7 Diarrhea, unspecified; E86.0 Dehydration; E83.42 Hypomagnesemia; E11.9 Type 2 diabetes mellitus without complications; E78.00 Pure hypercholesterolemia, unspecified; Z98.890 Other specified postprocedural states; Z79.899 Other long term (current) drug therapy; Z79.84 Long term (current) use of oral hypoglycemic drugs; Z79.01 Long term (current) use of anticoagulants; Z79.4 Long term (current) use of insulin
CPT/HCPCS: 99285; 96365; 83735; 84484; 80053; 85025; 36415; 93005; J3475; J7120

== ENCOUNTER 2023-02-28 17:00 | Inpatient (IN) | payer MEDICARE ==
[~2023-02-28] VITALS: Ht 157.5 cm; Wt 73.3 kg
[~2023-02-28 17:00] MED LIST changes: +DIPH1TAB PO; +LEVO-70 PO
[2023-02-28 17:53] LABS: BASOPHILS # (AUTO) 0.06 K/uL (0.00-0.20); BASOPHILS % (AUTO) 0.7 % (0.0-5.0); EOSINOPHILS # (AUTO) 0.16 K/uL (0.00-0.70); HEMATOCRIT 41.2 % (36-48); IMMATURE GRANULOCYTE ABSOLUTE 0.02 K/uL (0-1); LYMPHOCYTES # (AUTO) 2.5 K/uL (1.0-4.8); LYMPHOCYTES % (AUTO) 31.1 % (21.0-51.0); MEAN CORPUSCULAR HEMOGLOBIN 27.9 pg (27.0-33.0); MEAN CORPUSCULAR HGB CONC 31.8 g/dL (32.0-36.0); MEAN CORPUSCULAR VOLUME 87.8 fL (79-99); MONOCYTES # (AUTO) 0.8 K/uL (0.1-1.0); MONOCYTES % (AUTO) 10.3 % (3.0-13.0); NEUTROPHILS # (AUTO) 4.5 K/uL (1.8-7.7); NEUTROPHILS % (AUTO) 55.7 % (40.0-77.0); PLATELET COUNT (AUTO) 311 K/uL (130-400); RED BLOOD CELL COUNT(AUTO) 4.69 MIL/uL (4.00-5.50); RED CELL DISTRIBUTION WIDTH 13.7 % (11.0-15.5); WHITE BLOOD COUNT (AUTO) 8.1 K/uL (4.8-10.8)
[2023-02-28 18:01] LABS: CREATININE 1.1 mg/dL (0.5-1.5); POTASSIUM 4.4 mmol/L (3.5-5.1)
[2023-02-28 18:05] LABS: ALBUMIN 3.7 g/dL (3.5-5.0); BILIRUBIN,TOTAL 0.4 mg/dL (0.2-1.0); TOTAL PROTEIN, SERUM 7.9 g/dL (6.0-8.3)
[2023-02-28] MEDS ORDERED: IOHEXOL 350 MG/ML 100ML INFUS..BTL IV ONE (19:23)
[2023-02-28 20:24] LABS: APPEARANCE,URINE CLEAR (CLEAR); BILIRUBIN,URINE NEGATIVE (NEGATIVE); COLOR,URINE LIGHT-YELLOW (YELLOW); GLUCOSE, URINE (UA) >=1000 mg/dL (NEGATIVE); KETONES,URINE NEGATIVE (NEGATIVE); LEUKOCYTE ESTERASE ,URINE 75 Leu/uL (NEGATIVE); NITRATE,URINE NEGATIVE (NEGATIVE); OCCULT BLOOD,URINE NEGATIVE (NEGATIVE); PROTEIN,URINE NEGATIVE (NEGATIVE); UROBILINOGEN,URINE 0.2 mg/dL (0.2-1.0)
[2023-02-28 20:25] LABS: ADD UA MICROSCOPIC YES
[2023-02-28 20:26] LABS: BACTERIA,URINE MOD /HPF (None Seen); MUCUS,URINE FEW LPF (None Seen); RBC,URINE 0-1 /HPF (0-1); SQUAMOUS EPITHELIAL CELL,UR FEW /HPF (0-2)
[2023-02-28] MEDS ORDERED: 0.9%NACL 1000ML 1,000 ML IV SCH (23:00)
[2023-03-01] VITALS (9 sets, daily range): BP systolic 126–157; BP diastolic 61–91; PULSE 69–85; RESP 18–19; O2SAT 97–98
[2023-03-01] MEDS ORDERED: FERR-82 PO (01:42)
[2023-03-01] MEDS ORDERED: DAPA10TA PO (01:42)
[2023-03-01 04:00] LABS: BASOPHILS # (AUTO) 0.05 K/uL (0.00-0.20); BASOPHILS % (AUTO) 0.6 % (0.0-5.0); EOSINOPHILS % (AUTO) 2.2 % (0.0-8.0); HEMATOCRIT 40.4 % (36-48); IMMATURE GRANULOCYTE ABSOLUTE 0.03 K/uL (0-1); LYMPHOCYTES # (AUTO) 2.7 K/uL (1.0-4.8); LYMPHOCYTES % (AUTO) 30.2 % (21.0-51.0); MEAN CORPUSCULAR HEMOGLOBIN 28.2 pg (27.0-33.0); MEAN CORPUSCULAR HGB CONC 32.4 g/dL (32.0-36.0); MEAN CORPUSCULAR VOLUME 87.1 fL (79-99); MONOCYTES % (AUTO) 10.7 % (3.0-13.0); PLATELET COUNT (AUTO) 320 K/uL (130-400); RED BLOOD CELL COUNT(AUTO) 4.64 MIL/uL (4.00-5.50); RED CELL DISTRIBUTION WIDTH 13.6 % (11.0-15.5)
[2023-03-01 04:16] LABS: ALBUMIN 3.4 g/dL (3.5-5.0); BILIRUBIN,TOTAL 0.4 mg/dL (0.2-1.0); CREATININE 0.8 mg/dL (0.5-1.5); POTASSIUM 4.1 mmol/L (3.5-5.1); TOTAL PROTEIN, SERUM 7.4 g/dL (6.0-8.3)
[2023-03-01 04:19] LABS: HEMOGLOBIN A1C 6.9 % (4.0-6.0)
[2023-03-01] MEDS: ASPIRIN 81MG CHEW TAB PO SCH (09:10)
[2023-03-01] MEDS: ATORVASTATIN 40 MG TABLET PO SCH (09:10)
[2023-03-01] MEDS: FAMOTIDINE 20MG TAB PO SCH ×2 (09:10→19:47)
[2023-03-01] MEDS: CLOPIDOGREL 75MG TAB PO SCH (09:10)
[2023-03-01] MEDS ORDERED: SOTALOL HCL 80 MG TABLET PO SCH (16:30)
[2023-03-01] MEDS ORDERED: METFORMIN HCL 500 MG TABLET PO SCH (17:00)
[2023-03-01] MEDS ORDERED: INSULIN HUMULIN 70/30 100 UNIT/ML 3ML SQ SCH (17:00)
[2023-03-01] MEDS: APIXABAN 5 MG TABLET PO SCH (19:47)
[2023-03-02 04:09] VITALS: BP 144/75; PULSE 78; RESP 18
[2023-03-02 07:30] VITALS: O2SAT 96
[2023-03-02 08:00] VITALS: BP 111/59; PULSE 78; RESP 18
[2023-03-02] MEDS: CLOPIDOGREL 75MG TAB PO SCH (08:30)
[2023-03-02] MEDS: FAMOTIDINE 20MG TAB PO SCH (08:30)
[2023-03-02] MEDS: ATORVASTATIN 40 MG TABLET PO SCH (08:30)
[2023-03-02] MEDS: APIXABAN 5 MG TABLET PO SCH (08:30)
[2023-03-02] MEDS: ASPIRIN 81MG CHEW TAB PO SCH (08:31)
[2023-03-02] MEDS ORDERED: ATORVASTATIN 40 MG TABLET PO SCH (09:00)
[2023-03-02] MEDS ORDERED: LOSARTAN 25 MG TABLET PO SCH (09:00)
[2023-03-02] MEDS ORDERED: (Dapagliflozin Propanediol (Farxiga) 10 MG) PO SCH (09:00)
[2023-03-02] MEDS ORDERED: LEVOTHYROXINE 50 MCG TABLET PO SCH (09:00)
[2023-03-02] MEDS ORDERED: INSULIN HUMULIN 70/30 100 UNIT/ML 3ML SQ SCH (09:00)
[2023-03-02] MEDS ORDERED: NON-FORMULARY MEDICATION 1 EACH (Ferrous Sulfate (Iron) 325 MG) PO SCH (09:00)
[2023-03-02] MEDS ORDERED: FERROUS SULFATE 325 MG TABLET.DR PO SCH (09:00)
[2023-03-08] MEDS ORDERED: (Dulaglutide (Trulicity) 1.5 MG) SQ SCH (09:00)
== END 2023-03-02 10:12 | disposition home or self-care (01) | DRG 69 ==
LOC: EDH 17:00 → EDHIP 20:55 → 4AH 23:07
PROVIDERS: ADMIT Internal Medicine; ATTEND Internal Medicine
DX: G45.9 Transient cerebral ischemic attack, unspecified (principal); E11.9 Type 2 diabetes mellitus without complications; E78.00 Pure hypercholesterolemia, unspecified; I10 Essential (primary) hypertension; I48.91 Unspecified atrial fibrillation; E66.9 Obesity, unspecified; Z68.21 Body mass index [BMI] 21.0-21.9, adult; Z79.4 Long term (current) use of insulin; Z79.85 Long-term (current) use of injectable non-insulin antidiabetic drugs; Z89.421 Acquired absence of other right toe(s); Z89.411 Acquired absence of right great toe; Z79.01 Long term (current) use of anticoagulants; Z82.49 Family history of ischemic heart disease and other diseases of the circulatory system; Z83.3 Family history of diabetes mellitus
CPT/HCPCS: 36415; 70450; 70496; 70498; 70547; 70551; 71045; 80053; 80061; 81001; 82306; 82948; 83036; 84484; 85025; 87077; 87088; 87186; 92522; 92610; 93306; 93356; G0378; J1815; Q9967

== ENCOUNTER → 2023-06-28 | Outpatient (CLI) | payer MEDICARE ==
[~2023-06-28] MED LIST changes: -ACET-2079 PO; +CLOP75TA32 PO; -CYCL-309 PO; +DAPA10TA PO; -DIPH1TAB PO; +FERR-82 PO; +HONE15GE TP; -IBUP-1493 PO; +INSU3INS5 SQ; -LEVO-70 PO; -LIDOP TP
[2023-06-28 12:36] LABS: CHOLESTEROL 131 mg/dL (<200); HDL CHOLESTEROL 36 mg/dL (35-85); LDL DIRECT 76 mg/dL (0-99); TRIGLYCERIDES 128 mg/dL (30-200)
== END | disposition home or self-care (01) ==
LOC: LAB 08:52
PROVIDERS: ATTEND Internal Medicine Cardiovascular Disease
DX: E78.5 Hyperlipidemia, unspecified (principal)
CPT/HCPCS: 36415; 80061

== ENCOUNTER → 2023-07-10 | Outpatient (CLI) | payer MEDICARE | END | disposition home or self-care (01) | LOC: SHCH 15:33 | PROVIDERS: ATTEND Internal Medicine Cardiovascular Disease | DX: I65.23 Occlusion and stenosis of bilateral carotid arteries (principal) | CPT/HCPCS: 93880 ==

== ENCOUNTER 2024-12-27 17:52 | Inpatient (IN) | payer MEDICARE, MEDICAID ==
[~2024-12-27] VITALS: Ht 157.5 cm; Wt 67.6 kg
[2024-12-27 18:22] LABS: IMMATURE GRANULOCYTE ABSOLUTE 0.03 K/uL (0-1); NUCLEATED RED BLOOD CELLS 0.0 % (0.0-0.19); PLATELET COUNT (AUTO) 280 K/uL (130-400); RED BLOOD CELL COUNT(AUTO) 4.85 MIL/uL (4.00-5.50); RED CELL DISTRIBUTION WIDTH 14.6 % (11.0-15.5); WHITE BLOOD COUNT (AUTO) 7.8 K/uL (4.8-10.8)
--- NOTE | 2024-12-27 18:25 | ERN ---
ED Note History of Present Illness Stated Complaint: CP Chief Complaint: Chest Pain Time Seen by MD: 18:00 Dictation: 69-year-old female presents to ER complaints of chest pain, chest pressure and 1 episode of vomiting today. Patient states this chest pain started this morning around 10:00 a.m. and has resolved about 30-40 minutes ago. Patient denies shortness of breath, fever, cough. patient's primary doctor is Dr. estrella. With history of high cholesterol, HTN and diabetes Allergies: Coded Allergies: No Known Drug Allergies (Verified Allergy, Unknown, 05/30/18) Home Meds Reported Medications Honey (NameMedia) 80 % Gel..ml., 15 ML TP DAILY 06/10/23 Insuln Asp Prt/Insulin Aspart (Novolog Mix 70-30 Flexpen Syrn) 100 Unit/Ml (70- 30) Insuln.pen, 25 UNITS SQ HS 06/05/23 Clopidogrel Bisulfate (Clopidogrel) 75 Mg Tablet, 1 TAB PO DAILY 06/05/23 Ferrous Sulfate (Iron) 325 Mg (65 Mg Iron) Tablet, 325 MG PO DAILY, TAB 03/01/23 Dapagliflozin Propanediol (Farxiga) 10 Mg Tablet, 10 MG PO DAILY, TAB 03/01/23 Sotalol HCl (Sotalol) 80 Mg Tablet, 80 MG PO BID, TAB 10/01/18 Dulaglutide (Trulicity) 1.5 Mg/0.5 Ml Pen.injctr, 1.5 MG SQ QWEEK PT TAKES QWEDN09/30/18 Insuln Asp Prt/Insulin Aspart (Novolog Mix 70-30 Vial) 100 Unit/Ml (70-30) Vial, 20 UNITS SQ AM, VIAL 05/31/18 Apixaban (Eliquis) 5 Mg Tablet, 5 MG PO BID, TAB 05/31/18 Levothyroxine Sodium (Levothyroxine Sodium) 50 Mcg Tablet, 50 MCG PO ACBKFST, TAB 05/31/18 Losartan Potassium (Losartan Potassium) 25 Mg Tablet, 25 MG PO DAILY, TAB 05/31/18 Atorvastatin Calcium (Atorvastatin Calcium) 40 Mg Tablet, 40 MG PO HS, TAB 05/31/18 Metformin HCl (Metformin HCl) 1,000 Mg Tablet, 1000 MG PO BIDMEALS, TAB 05/31/18 Past Medical History Past Medical History: Diabetes-Type II, High Cholesterol, Hypertension Additional Past Medical Hx: THYROID Surgical History: BTL Surgical History Other: FEM POP , 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 Negative PALPITATIONS, AND EDEMA RESPIRATORY: NEGATIVE FOR SHORTNESS OF BREATH, COUGH, WHEEZING, AND PLEURITIC CHEST PAIN ABDOMEN/GI: NEGATIVE FOR ABDOMINAL PAIN, AND DIARRHEA. . Positive vomiting BACK: NEGATIVE FOR PAIN OR INJURY : NEGATIVE FOR INJURY, BLEEDING AND DISCHARGE MS/EXTREMITY: NEGATIVE FOR INJURY AND DEFORMITY SKIN: NEGATIVE FOR RASH, AND DISCOLORATION NEURO: NEGATIVE FOR HEADACHE, WEAKNESS, NUMBNESS, TINGLING, AND SEIZURE PSYCH: NEGATIVE FOR SUICIDE IDEATION, HOMICIDAL IDEATION, AND HALLUCINATIONS ALLERGY/IMMUNOLOGY: NEGATIVE FOR HIVES, RASH, AND ALLERGIES ALL SYSTEMS NEGATIVE, EXCEPT NOTED ABOVE. 13 POINT REVIEW OF SYSTEMS ASSESSED AND ALL NEGATIVE EXCEPT FOR ABOVE. Initial Vital Sign VS Vital Signs Date Time Temp Pulse Resp B/P (MAP) Pulse Ox O2 Delivery O2 Flow Rate FiO2 12/27/24 17:54 98.1 76 18 142/98 100 Room Air 0 12/27/24 19:00 21 Physical Exam Dictation General: awake, alert, NAD Head/Face: Normocephalic, atraumatic Eyes: PERRL, EOMI, vision at baseline ENT: oral cavity clear, TMs clear, no signs of infection Neck: Trachea midline, supple, no nuchal rigidity Cardiovascular: RRR, normal no JVD Respiratory: CTAB, no respiratory distress, No rales or wheezes Abdomen: Soft, non-tender, non-distended, normal bowel sounds, no guarding or rebound. Skin: Warm, dry, normal turgor, no rash MS/Extremity: Pulses equal, no cyanosis, neurovascular intact, FROM Neuro: COAx4, GCS 15, strength 5/5, CN 2-12 intact, normal cerebellar exam, normal gait, Psych: Normal behavior, mood, and affect normal Results (Laboratory/Radiology) Laboratory/Radiology Laboratory Tests Test 12/27/24 18:15 12/27/24 19:19 12/27/24 19:20 White Blood Count 7.8 K/uL (4.8-10.8) Red Blood Count 4.85 MIL/uL (4.00-5.50) Hemoglobin 13.9 g/dL (12.0-16.0) Hematocrit 44.0 % (36-48) Mean Corpuscular Volume 90.7 fL (79-99) Mean Corpuscular Hemoglobin 28.7 pg (27.0-33.0) Mean Corpuscular Hemoglobin Concent 31.6 g/dL (32.0-36.0) L Red Cell Distribution Width 14.6 % (11.0-15.5) Platelet Count 280 K/uL (130-400) Mean Platelet Volume 9.7 fL (7.5-10.5) Immature Granulocyte % (Auto) 0.4 % (0-1) Neutrophils (%) (Auto) 56.5 % (40.0-77.0) Lymphocytes (%) (Auto) 31.3 % (21.0-51.0) Monocytes (%) (Auto) 9.4 % (3.0-13.0) Eosinophils (%) (Auto) 1.8 % (0.0-8.0) Basophils (%) (Auto) 0.6 % (0.0-5.0) Neutrophils # (Auto) 4.4 K/uL (1.8-7.7) Lymphocytes # (Auto) 2.5 K/uL (1.0-4.8) Monocytes # (Auto) 0.7 K/uL (0.1-1.0) Eosinophils # (Auto) 0.14 K/uL (0.00-0.70) Basophils # (Auto) 0.05 K/uL (0.00-0.20) Absolute Immature Granulocyte (auto 0.03 K/uL (0-1) Nucleated Red Blood Cells 0.0 % (0.0-0.19) Sodium Level 142 mmol/L (136-145) Potassium Level 4.6 mmol/L (3.5-5.1) Chloride Level 106 mmol/L (101-111) Carbon Dioxide Level 25 mmol/L (21-32) Blood Urea Nitrogen 25 mg/dL (7-18) H Creatinine 1.2 mg/dL (0.5-1.0) H Glomerular Filtration Rate Calc 48 mL/min (>90) Random Glucose 135 mg/dL (70-105) H Total Calcium 8.9 mg/dL (8.5-10.1) Magnesium Level 1.70 mg/dL (1.80-2.40) L Total Creatine Kinase 34 U/L (21-232) # Troponin I High Sensitivity 112 ng/L (4-50) *H 192 ng/L (4-50) *H Urine Color LIGHT-YELLOW (YELLOW) Urine Appearance CLOUDY (CLEAR) H Urine pH 5.5 (5.0-8.0) Urine Specific [place]ike 1.026 (1.001-1.031) Urine Protein NEGATIVE mg/dL (NEGATIVE) Urine Glucose (UA) >=1000 mg/dL (NEGATIVE) H Urine Ketones NEGATIVE mg/dL (NEGATIVE) Urine Occult Blood NEGATIVE (NEGATIVE) Urine Nitrate 2+ (NEGATIVE) H Urine Bilirubin NEGATIVE mg/dL (NEGATIVE) Urine Urobilinogen 0.2 mg/dL (0.2-1.0) Urine Leukocyte Esterase 500 [place]/uL (NEGATIVE) H Urine RBC 11-25 /HPF (0-1) H Urine WBC 51-100 /HPF (0-1) H Urine WBC Clumps (Auto) FEW /HPF (0-1) Urine Squamous Epithelial Cells FEW /HPF (0-2) Urine Non-Squamous Epithelial Cells 3 /HPF (0-2) Urine Bacteria FEW /HPF (None Seen) Urine Hyaline Casts 0-1 /LPF (0-1 /LPF) ED Course ED Course Orders Procedure Category Date Status Time Cbc With Differential LAB 12/27/24 Complete 18:10 Chest 1vw RAD 12/27/24 Resulted 18:10 Magnesium LAB 12/27/24 Complete 18:10 Creatine Kinase, Total LAB 12/27/24 Complete 18:10 Troponin I High LAB 12/27/24 Complete Sensitivity 18:10 Urinalysis Profile LAB 12/27/24 Complete 18:10 Basic Metabolic Panel LAB 12/27/24 Complete 18:10 Aspirin 325mg Ec Tab PHA 12/27/24 Complete (Aspirin 325mg Ec T 19:00 Troponin I High LAB 12/27/24 Complete Sensitivity 18:54 12 Lead Ekg Tracing- EKG 12/27/24 Complete Technical 18:55 Culture Urine JAMI 12/27/24 In Process 19:39 Heparin 25,000 PHA 12/27/24 In Process Units/250ml D5w 20:00 Heparin 5,000 Unit PHA 12/27/24 Complete Vial (Heparin 5,000 U 20:00 Heparin 5,000 Unit PHA 12/27/24 Complete Vial (Heparin 5,000 U 19:56 Heparin 25,000 PHA 12/27/24 Complete Units/250ml D5w 19:56 12 Lead Ekg Tracing- EKG 12/27/24 Logged Technical 20:03 Vital Signs(Adult CPOE 12/27/24 Transmitted Hospitalist) 20:15 Nurse To Enter Home CPOE 12/27/24 Transmitted Medication 20:15 Admit Orders ADM 12/27/24 Transmitted 20:15 Pharmacy PHA 12/27/24 Complete Communication 20:30 Clopidogrel 75mg Tab PHA 12/27/24 Complete (Plavix 75mg) 20:30 Clopidogrel 75mg Tab PHA 12/28/24 In Process (Plavix 75mg) 09:00 Aspirin 81mg Ec Tab PHA 12/28/24 In Process (Aspirin 81mg Ec Tab 09:00 Nitroglycerin 0.4mg PHA 12/27/24 In Process Sl Tab (Nitrostat) 20:30 Cbc With Differential LAB 12/28/24 Verified 04:00 Comprehensive LAB 12/28/24 Verified Metabolic Panel 04:00 Continue Home CPOE 12/27/24 Transmitted Meds/Reviewed 20:15 Npo After Midnight DIANA 12/27/24 Transmitted 20:15 Cardiac Panel LAB 12/28/24 Verified 02:00 Cardiac Panel LAB 12/28/24 Verified 08:00 Cardiac Panel LAB 12/28/24 Verified 14:00 *Nursing CPOE 12/27/24 Transmitted Communication: 20:15 Current Medications Medications (Trade) Dose Ordered Sig/Emerson Route PRN Reason Start Time Stop Time Status Last Admin Dose Admin Aspirin (Aspirin 325mg Ec Tab) 325 mg ONCE ONCE PO 12/27/24 19:00 12/27/24 19:01 DC Heparin Sodium (Porcine) (HEParin 5,000 UNIT VIAL) 5,000 unit ONCE ONCE IV 12/27/24 20:00 12/27/24 20:01 DC 12/27/24 20:04 Heparin Sodium (Porcine) (HEParin 5,000 UNIT VIAL) 5,000 unit STK-MED ONCE .ROUTE 12/27/24 19:56 12/27/24 19:56 DC Heparin Sodium/ Dextrose 250 ml @ As Directed STK-MED ONCE IV 12/27/24 19:56 12/27/24 19:56 DC Heparin Sodium/ Dextrose 250 ml @ 0 mls/hr PROTOCOL IV 12/27/24 20:00 01/26/25 19:59 12/27/24 20:05 Vital Signs Date Time Temp Pulse Resp B/P (MAP) Pulse Ox O2 Delivery O2 Flow Rate FiO2 12/27/24 20:23 98.2 68 18 110/48 98 Room Air* 0 21 12/27/24 19:00 98.4 73 20 107/53 97 Room Air* 0 21 12/27/24 17:54 98.1 76 18 142/98 100 Room Air 0 Medical Decision Making MDM MDM: Differential diagnosis: Acute coronary syndrome, costochondritis, anxiety, Rationale: Tests considered and ordered secondary to shared decision making include: labs, ECG and radiology Previous outside records reviewed: Old ER visits. Risk of complication and/or morbidity or mortality of patient management: None Medications-Per medication reconciliation Need for hospitalization: Patient does meet criteria for hospitalization. Need for emergency major/minor surgery: No There are no social concerns with this patient. Prescription drug management Prescriptions will include symptomatic care Patient's prior external medical records from other ER visits were reviewed by me as indicated. Prior testing and results from previous visits were reviewed. Prior tests were taken into account with medical decision making and resource utilization, independent historian/historians were used to obtain complete medical history. I independently interpreted the test that were performed, results were reviewed by me and considered findings on radiology if ordered. Patient will be admitted to Dr. Unger who is on for Dr. estrella. Diagnosis acute coronary syndrome. We will contact Cardiology on-call to let them know troponin elevation, patient crusher is Dr. Alejo. Khoi is on-call DX & DISP Disposition: Inpatient Departure Impression: Primary Impression: Acute coronary syndrome Additional Impressions: Chest pain, Troponin level elevated, Non-STEMI (non- ST elevated myocardial infarction) Condition: Stable Assign Patient to: CONSULTED DR. DARNELL ON PATIENT . AWARE OF PATIENT CONDITION AND PATIENT IN ER. Additional Instructions: Spoke to Dr. UNGER accepting physician for admission Referrals: ROBERTA ESTRELLA MD (PCP) SRINIVASA SORIA Dec 27, 2024 18:25
[2024-12-27 18:31] LABS: CREATININE 1.2 mg/dL (0.5-1.0); GLOMERULAR FILTR. RATE CALC 48.0 mL/min (>90); GLUCOSE,RANDOM 135.0 mg/dL (70-105); SODIUM SERUM 142.0 mmol/L (136-145); UREA NITROGEN, BLOOD 25.0 mg/dL (7-18)
[2024-12-27 18:37] LABS: CREATINE KINASE, TOTAL 34.0 U/L (21-232)
--- NOTE | 2024-12-27 19:26 | HMCIMG ---
EXAM: XR Chest, 1 View. CLINICAL HISTORY: 69-year-old female with chest pain. COMPARISON: Prior XR Chest from 06/05/2023 at 3:35 PM. FINDINGS: LUNGS: The lungs are clear. No consolidation. PLEURAL SPACES: No pleural effusion or pneumothorax. HEART: The heart size is normal. BONES: No acute osseous abnormality. IMPRESSION: 1. No acute cardiopulmonary pathology. 2. Findings similar to prior XR Chest from 06/05/2023 at 3:35 PM. /[place]
[2024-12-27] MEDS: ASPIRIN 325MG EC TAB PO ONE (19:30)
[2024-12-27 19:38] LABS: APPEARANCE,URINE CLOUDY (CLEAR); GLUCOSE, URINE (UA) >=1000 mg/dL (NEGATIVE); LEUKOCYTE ESTERASE ,URINE 500 Leu/uL (NEGATIVE); NITRATE,URINE 2+ (NEGATIVE); OCCULT BLOOD,URINE NEGATIVE (NEGATIVE)
[2024-12-27 19:39] LABS: ADD UA MICROSCOPIC YES
[2024-12-27 19:43] LABS: HYALINE CASTS, URINE 0-1 /LPF (0-1 /LPF); NON-SQUAMOUS EPITHELIAL CELL 3 /HPF (0-2); SQUAMOUS EPITHELIAL CELL,UR FEW /HPF (0-2); WBC CLUMP FEW /HPF (0-1)
--- NOTE | 2024-12-27 20:15 | EKG ---
[facility] Test Date: 2024-12-27 Test Time: 19:53:45 Pat Name: ESTELLA BURK Department: ED Room: 205 Gender: F Refractory Manager: [id number] : 1955 Requested By: SRINIVASA SORIA Order Number: [id number] Reading MD: Enoc Westfall Measurements Intervals [place] Rate: 68 P: 10 AR: 165 QRS: 1 QRSD: 68 T: 5 QT: 407 QTc: 434 Interpretive Statements Sinus rhythm Compared to ECG 03/01/2022 12:31:53 No significant changes Electronically Signed On 12-28-2024 07:05:02 CDT by Enoc Westfall Please click the below link to view image of tracing.
[2024-12-27] MEDS ORDERED: NITROGLYCERIN 0.4 MG SL TAB SL PRN (20:30)
[2024-12-27] MEDS ORDERED: PHARMACY COMMUNICATION MISC SCH (20:30)
[2024-12-28] VITALS (14 sets, daily range): BP systolic 115–164; BP diastolic 56–85; PULSE 65–74; RESP 16–20; TEMP 97.9–98.7; O2SAT 98
--- NOTE | 2024-12-28 00:35 | NUR ---
REPORT GIVEN TO TERRI RN
[2024-12-28 01:45] LABS: IMMATURE GRANULOCYTE ABSOLUTE 0.02 K/uL (0-1); NUCLEATED RED BLOOD CELLS 0.0 % (0.0-0.19); PLATELET COUNT (AUTO) 251 K/uL (130-400); RED BLOOD CELL COUNT(AUTO) 4.45 MIL/uL (4.00-5.50); RED CELL DISTRIBUTION WIDTH 14.4 % (11.0-15.5); WHITE BLOOD COUNT (AUTO) 8.1 K/uL (4.8-10.8)
[2024-12-28 01:57] LABS: INR 1.07 (0.85-1.15)
[2024-12-28 02:03] LABS: ASPARTATE AMINOTRANSFERASE 18.0 U/L (10-37); CREATINE KINASE, TOTAL 38.0 U/L (21-232); CREATININE 1.0 mg/dL (0.5-1.0); GLOMERULAR FILTR. RATE CALC 60.0 mL/min (>90); GLUCOSE,RANDOM 98.0 mg/dL (70-105); SODIUM SERUM 141.0 mmol/L (136-145); TOTAL PROTEIN, SERUM 6.5 g/dL (6.0-8.3); UREA NITROGEN, BLOOD 25.0 mg/dL (7-18)
[2024-12-28] MEDS ORDERED: DONE5TAB33 PO (02:24)
--- NOTE | 2024-12-28 06:49 | EKG ---
[facility] Test Date: 2024-12-27 Test Time: 17:59:38 Pat Name: ESTELLA BURK Department: [facility] Room: 205 1 Gender: F Manager Code: [id number] : 1955 Requested By: SRINIVASA SORIA Order Number: [id number] Reading MD: Enoc Westfall Measurements Intervals [place] Rate: 76 P: 50 [place]: 153 QRS: 40 QRSD: 81 T: 35 QT: 398 QTc: 448 Interpretive Statements Sinus rhythm Anteroseptal infarct, age indeterminate Compared to ECG 03/01/2022 12:31:53 Myocardial infarct finding now present Electronically Signed On 12-28-2024 07:02:50 CDT by Enoc Westfall Please click the below link to view image of tracing.
[2024-12-28] MEDS ORDERED: LIDOCAINE HCL 400MG/20ML VIAL ONE (08:19)
[2024-12-28] MEDS ORDERED: NITROGLYCERIN 50MG VIAL ONE (08:19)
[2024-12-28] MEDS ORDERED: SODIUM BICARB 50MEQ 50ML VIAL 50 ML ONE (08:19)
[2024-12-28] MEDS ORDERED: HEParin-NS 1,000 UNIT/500 ML 1,000 ML IV ONE (08:19)
[2024-12-28] MEDS ORDERED: IOHEXOL 350 MG/ML 100ML INFUS..BTL IV ONE (08:19)
--- NOTE | 2024-12-28 08:25 | CONS ---
[facility] CARDIOLOGY CONSULTATION NOTE Date Patient Seen: Dec 28, 2024 Time of Visit: 08:19 Requesting Physician: [ ] Reason for Consultation: [ ] History of Present Illness: [Patient with complex cerebral vascular history of three strokes in 1999 and another in 2007, has had complete recovery from those events. Now she presents with retrosternal chest pressure and pain associated with shortness of breath that lasted about 5-6 hours. Troponins have risen to 600 and non-STEMI is confirmed. No symptoms since relief late yesterday afternoon. No prior symptoms of this type, no exertional symptoms. ] Past Medical History: [Three strokes in 1999, another in 2007, previous right hemiparesis which completely resolved Longstanding diabetes Longstanding hypertension Longstanding dyslipidemia No GI history ] Past Surgical History: [None ] Family History: [Both parents had coronary ] Social History: [Disease Finnish-speaking only, no vices, supportive family and daughter was contacted on the patient's cell phone and was very helpful and filling in bits of history ] Habits: [Never] smoker. [Denies] alcohol consumption. [Denies] illicit drug use Home Meds: [ ] Current Meds: [ ] Review of Systems: CONST: [No fever, fatigue, or weight changes.] EYES: [No recent vision problems.] ENT: [No congestion, ear pain, or sore throat.] C/V: [Admits chest pain, denies palpitations, or edema.] RESP: [No cough, congestion, wheezing but during chest pain only admits shortness of breath.] GI: [No abdominal pain, nausea, vomiting, constipation, or diarrhea. No history of gastritis, polyps, or ulcers] : [No dysuria.] SKIN: [No rash.] NEURO: [No headache, focal numbness or weakness, dizziness, or seizures.] PSYCH: [No depression or anxiety.] HEME: [No abnormal bruising or bleeding.] LYMPH: [No swollen glands.] Physical Examination: GENERAL: [No acute distress.] HEAD: [Normal with no signs of head trauma.] EYES: [PERRLA, EOMI, conjunctiva and sclera normal.] ENT: [Hearing grossly intact, normal oropharynx.] NECK: [Supple without JVD. There is no tenderness, lymphadenopathy, or masses. No thyromegaly. Normal carotid upstrokes without bruits.] LUNGS: [Clear breath sounds bilaterally. There are right basilar rales one third of the way up the chest. No wheezes, or rhonchi.] HEART: [Normal rate and rhythm. Normal S1 and S2 without mumurs, gallop or rub.] VASC: [Pedal pulses markedly diminished, radial and ulnar pulses also diminished.] ABD: [Bowel sounds normal, soft, nontender, no masses, no organomegaly. No audible bruits.] : [Not examined] LYMPH: [No lymphadenopathy noted.] EXT: [No clubbing, cyanosis or edema.] SKIN: [No rashes or lesions noted.] NEURO: [Awake, alert, and oriented x3. No focal sensory or strength deficits noted.] Vital Signs (last 8hr) Date Time Temp Pulse Resp B/P (MAP) Pulse Ox O2 Delivery O2 Flow Rate FiO2 12/28/24 08:00 98.8 68 20 137/65 97 Room Air 12/28/24 03:26 97.9 71 16 154/72 99 Room Air 12/28/24 00:56 98.1 66 16 149/59 94 Room Air 12/28/24 00:40 Room Air* 0 21 Laboratory: [ ] Hematology Labs: Test 12/28/24 01:35 Range/Units White Blood Count 8.1 4.8-10.8 K/uL Red Blood Count 4.45 4.00-5.50 MIL/uL Hemoglobin 12.6 12.0-16.0 g/dL Hematocrit 38.5 36-48 % Mean Corpuscular Volume 86.5 79-99 fL Mean Corpuscular Hemoglobin 28.3 27.0-33.0 pg Mean Corpuscular Hemoglobin Concent 32.7 32.0-36.0 g/dL Red Cell Distribution Width 14.4 11.0-15.5 % Platelet Count 251 130-400 K/uL Mean Platelet Volume 9.7 7.5-10.5 fL Immature Granulocyte % (Auto) 0.2 0-1 % Neutrophils (%) (Auto) 48.6 40.0-77.0 % Lymphocytes (%) (Auto) 38.1 21.0-51.0 % Monocytes (%) (Auto) 10.3 3.0-13.0 % Eosinophils (%) (Auto) 2.2 0.0-8.0 % Basophils (%) (Auto) 0.6 0.0-5.0 % Neutrophils # (Auto) 4.0 1.8-7.7 K/uL Lymphocytes # (Auto) 3.1 1.0-4.8 K/uL Monocytes # (Auto) 0.8 0.1-1.0 K/uL Eosinophils # (Auto) 0.18 0.00-0.70 K/uL Basophils # (Auto) 0.05 0.00-0.20 K/uL Absolute Immature Granulocyte (auto 0.02 0-1 K/uL Nucleated Red Blood Cells 0.0 0.0-0.19 % Chemistry Labs: Test 12/28/24 01:35 12/27/24 18:15 Range/Units Sodium Level 141 136-145 mmol/L Potassium Level 3.9 3.5-5.1 mmol/L Chloride Level 106 101-111 mmol/L Carbon Dioxide Level 24 21-32 mmol/L Blood Urea Nitrogen 25 H 7-18 mg/dL Creatinine 1.0 0.5-1.0 mg/dL Glomerular Filtration Rate Calc 60 >90 mL/min Random Glucose 98 70-105 mg/dL Total Calcium 8.5 8.5-10.1 mg/dL Total Bilirubin 0.4 0.2-1.0 mg/dL Aspartate Amino Transf (AST/SGOT) 18 10-37 U/L Alanine Aminotransferase (ALT/SGPT) 18 12-78 U/L Alkaline Phosphatase 62 50-136 U/L Total Creatine Kinase 38 21-232 U/L Troponin I High Sensitivity 687.9 *H 4-50 ng/L Total Protein 6.5 6.0-8.3 g/dL Albumin 3.1 L 3.5-5.0 g/dL Magnesium Level 1.70 L 1.80-2.40 mg/dL Coagulation Labs: Test 12/28/24 01:35 Range/Units Prothrombin Time 11.3 9.6-11.6 SEC Prothromb Time International Ratio 1.07 0.85-1.15 Activated Partial Thromboplast Time > 139.0 *H 26.3-35.5 SEC Diagnostics / Radiology: [Copy/Paste Echos/Imaging Report here] Assessment: [Diabetic with multiple prior strokes, none in the last 10 years, probably also has peripheral vascular disease as assessed by exam. Now she presents with non- STEMI and likely has significant coronary disease, requires invasive evaluation. ] Plan: [Patient and daughter verbalized understanding and acceptance of the risks and benefits of cardiac catheterization and possible PTCA/stent. They also understand that surgery could be necessary. ] CORAL DARNELL MD Dec 28, 2024 08:24
--- NOTE | 2024-12-28 08:45 | NUR ---
TAKEN TO [facility] VIA BED BY LLOYD CONTRERAS.
--- NOTE | 2024-12-28 08:53 | NUR ---
DCP: HOME Sw met with pt who lives alone in her mobile home with ramp. Pt can afford her home, has food stamp assistance $230 month. Pt sates at times she needs assistance with her ADLS, provider will assist as needed. Provider also does the cooking, cleaning, laundry and transportation when family can't. Pt uses walker, cane shower chair and nebulizer. No HH or HD. PCP is Lopez Tomlin and uses [facility] for rx needs. Pt [place] and [place]. Addendum: 12/28/24 at 0857 by KALANI TAVARES Amended: Links added.
[2024-12-28] MEDS ORDERED: MIDAZOLAM HCL 1 MG/ML 2ML VIAL ONE (09:04)
[2024-12-28 09:05] LABS: CREATINE KINASE, TOTAL 40.0 U/L (21-232)
[2024-12-28] MEDS ORDERED: BIVALIRUDIN 250 MG/VIAL IV ONE (09:12)
[2024-12-28] MEDS ORDERED: IOHEXOL-350 75 ML VIAL IV ONE (09:27)
--- NOTE | 2024-12-28 10:41 | PRN ---
Left Heart Catheterization, Coronary Arteriogram And Left Ventricular Cineangiogram Indication: Non-STEMI Technique: Patient was brought to the lab in a fasting state after informed consent and sedated with 1 mg Versed and 50 mcg fentanyl. We considered radial approach but were not content with the radial access as assessed by ultrasound, so we instead punctured the right common femoral artery using micropuncture technique under fluoroscopic and ultrasound guidance with 1% lidocaine anestheti c. We inserted a six Icelandic sheath and performed left and right coronary arteriography with six Icelandic 4 cm left and right Hima catheters. We exchanged for a six Icelandic angled pigtail and cannulated the left ventricle, then obtained left ventricular cineangiogram in PIMENTEL projection. A pullback recording was obtained and Vascade was used to close the arteriotomy with excellent hemostasis and no complications. Results: Hemodynamics: LVEDP was 14 before angiography and 13 after. LV systolic pressure was 132 with aortic root pressure 135/41, mean 77. Ventriculography: Left ventricular cineangiography demonstrated a hyperdynamic left ventricle which was hypertrophied. No wall motion abnormality is identified and the ejection fraction is greater than 75%. The mitral valve is competent. Extensive coronary calcification is apparent on ventriculography. Angiography: This is a right-dominant system. The right coronary supplies a marginal descending branch and for posterolateral and the AV pop branch. There is 30% ostial calcified stenosis and there is a long segmental calcified 75% stenosis in the vertical portion that spans the origin of the AV groove. Just after the bifurcation of distal RCA and marginal descending, there is an additional tor tuous calcified 60% stenosis. The left main is a large caliber vessel, about 4 mm at its origin, but it tapers and in its most distal segment it is notable for a calcified 50% stenosis (MLD about 2 mm) that is contiguous with disease in the circumflex and ramus. Left circumflex supplies a 2nd obtuse marginal and a terminal branch and is notable for an eccentric calcified 75% ostial stenosis. The 1st obtuse marginal is supplied by the ramus. The ramus intermedius arises from a trifurcation of the left main, and the ramus is narrowed at its origin by calcified 65-70% ostial lesion. Just after this lesion the ramus gives off a branch that courses where an obtuse marginal usually would, then the ramus continues as a large branch that approaches the apex. The left anterior descending gives off mostly septal perforators, and where the 1st diagonal would be, that distribution is served by the ramus. After the 1st septal gas plant repairer there is segmental calcified 50-75% stenosis of the mid LAD. After the 2nd diagonal, in the apical 3rd of the LAD (which wraps around the apex and supplies the apical portion of the inferior groove), the LAD is notable for diffuse heavy plaque which narrows the vessel to less than 1 mm diameter in a diffuse manner and this long segment is heavily calcified. Conclusions: While the patient did present with a non-STEMI, we do not observe ulcerated plaque or critical plaque stenosis. Instead we fine mostly diffuse, heavily calcified chronic disease distributed between the left main and three-vessel, and some of these vessels are poor targets for intervention or surgery. The right coronary would be a reasonable target for shockwave angioplasty and stent, and the ostial disease in the ramus could probably be treated in this manner, bu t the ramus and circumflex disease is also contiguous with moderate disease in the left main. Diffuse disease in the mid LAD could be treated with shockwave and stent, but it is a very small caliber vessel with diffuse distal disease that is not amenable to intervention. Aside from the complexity of the lesions in the disease and countered, there is no wall motion abnormality identified to clarify which lesions would actually impact the patient's prognosis as targets for revascularization after non-STEMI. Recommendations: Trial of dual antiplatelet therapy and beta-blockers and statins, careful observation and eventual risk stratification with perfusion scan. Resort to invasive treatment only if necessary. CORAL DARNELL MD Dec 28, 2024 10:41
--- NOTE | 2024-12-28 10:44 | PN ---
With no identifiable wall motion abnormality, EF greater than 75%, and only one episode of chest pain ever (prolonged chest pain yesterday, the infarct), plus diffuse calcified three-vessel disease, it is difficult to pick a target for intervention that would be highly probable to improve the patient's prognosis, and that would pose a reasonable risk/benefit proposition. None of the lesions is critical, all appear chronic, and we will treat the patient with beta- blockers/statins/dual antiplatelet therapy and eventually perform risk stratification with a perfusion scan. Assuming the patient remains stable and is asymptomatic with ambulation, she may be ready for discharge tomorrow. Vitals/Labs Vital Signs Date Time Temp Pulse Resp B/P (MAP) Pulse Ox O2 Delivery O2 Flow Rate FiO2 12/28/24 08:31 Room Air* 0 21 12/28/24 08:00 98.8 68 20 137/65 97 Laboratory Tests 12/27/24 18:15 12/28/24 01:35 Microbiology Date/Time Source Procedure Growth Status 12/27/24 19:20 Urine,Clean Catch - Final Complete Medications Current Medications Aspirin 325 mg ONCE ONCE PO; Start 12/27/24 at 19:00; Stop 12/27/24 at 19:01; Status DC Heparin Sodium/ Dextrose 250 ml @ 0 mls/hr PROTOCOL IV Last administered on 12/27/24at 20:05; Start 12/27/24 at 20:00; Stop 01/26/25 at 19:59 Heparin Sodium (Porcine) 5,000 unit ONCE ONCE IV Last administered on 12/27/24at 20:04; Start 12/27/24 at 20:00; Stop 12/27/24 at 20:01; Status DC Heparin Sodium (Porcine) 5,000 unit STK-MED ONCE .ROUTE; Start 12/27/24 at 19:56; Stop 12/27/24 at 19:56; Status DC Heparin Sodium/ Dextrose 250 ml @ As Directed STK-MED ONCE IV; Start 12/27/24 at 19:56; Stop 12/27/24 at 19:56; Status DC Pharmacy Profile Note 1 each ONCE MISC; Start 12/27/24 at 20:30; Stop 12/27/24 at 20:32; Status DC Clopidogrel Bisulfate 75 mg ONCE ONCE PO Last administered on 12/27/24at 23:11; Start 12/27/24 at 20:30; Stop 12/27/24 at 20:32; Status DC Clopidogrel Bisulfate 75 mg DAILY PO; Start 12/28/24 at 09:00; Stop 01/27/25 at 08:59 Aspirin 81 mg DAILY PO; Start 12/28/24 at 09:00; Stop 01/27/25 at 08:59 Nitroglycerin 0.4 mg AD PRN SL; Start 12/27/24 at 20:30; Stop 01/26/25 at 20:29 Lidocaine HCl 20 ml STK-MED ONCE .ROUTE; Start 12/28/24 at 08:19; Stop 12/28/24 at 08:19; Status DC Sodium Bicarbonate 50 ml @ As Directed STK-MED ONCE .ROUTE; Start 12/28/24 at 08:19; Stop 12/28/24 at 08:19; Status DC Iohexol 35,000 mg STK-MED ONCE IV; Start 12/28/24 at 08:19; Stop 12/28/24 at 08:19; Status DC Heparin Sodium (Porcine) 10,000 unit STK-MED ONCE .ROUTE; Start 12/28/24 at 08:19; Stop 12/28/24 at 08:19; Status DC Heparin Sodium/ Sodium Chloride 1,000 ml @ As Directed STK-MED ONCE IV; Start 12/28/24 at 08:19; Stop 12/28/24 at 08:19; Status DC Nitroglycerin 50 mg STK-MED ONCE .ROUTE; Start 12/28/24 at 08:19; Stop 12/28/24 at 08:19; Status DC Nicardipine HCl 25 mg STK-MED ONCE IV; Start 12/28/24 at 08:53; Stop 12/28/24 at 08:53; Status DC Fentanyl Citrate 100 mcg STK-MED ONCE .ROUTE; Start 12/28/24 at 09:04; Stop 12/28/24 at 09:04; Status DC Midazolam HCl 2 mg STK-MED ONCE .ROUTE; Start 12/28/24 at 09:04; Stop 12/28/24 at 09:04; Status DC Bivalirudin 250 mg STK-MED ONCE IV; Start 12/28/24 at 09:12; Stop 12/28/24 at 09:12; Status DC Iohexol 75 ml STK-MED ONCE IV; Start 12/28/24 at 09:27; Stop 12/28/24 at 09:28; Status DC CORAL DARNELL MD Dec 28, 2024 10:43
--- NOTE | 2024-12-28 10:45 | NUR ---
RETUNED FROM [facility] VIA BED BY [facility] CONTRERAS. APPEARS COMFORTABLE. TELEMETRY SR HR 79. NORMAL SALINE ON AT 150CC/HR FOR 3 HOURS. BEDREST FOR 3 HOURS. FAMILY AT BEDSIDE AND PLAN OF CARE DISCUSSED.
--- NOTE | 2024-12-28 13:12 | HP ---
HISTORY OF PRESENT ILLNESS: The patient of Dr. Tomlin, came to the Emergency Room complaining of chest pain, pressure type associated with an episode of vomiting. The patient referred the pain resolved after 30-40 minutes. ALLERGIES: None. MEDICATIONS: Include insulin, Plavix, Farxiga, sotalol, Trulicity, Eliquis, levothyroxine, losartan, atorvastatin, metformin. PAST MEDICAL HISTORY: Type 2 diabetes, hypertension, dyslipidemia, chronic anticoagulation, atrial fibrillation. 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 REVIEW OF SYSTEMS: No fever, chills, seizures, loss of consciousness. No cough, wheezes, or rhonchi. No abdominal pain. No nausea. No hematemesis, melena, hematuria, or rectal bleeding. No dysuria, urgency, or frequency. No rashes, petechiae, or ecchymosis. No hallucinations or delusions. No suicidal ideation. PHYSICAL EXAMINATION: GENERAL: Awake, alert, and oriented to person, time, and place. VITAL SIGNS: Blood pressure 142/98, pulse 76, respirations 18. HEENT: Normocephalic, atraumatic. LUNGS: Clear to auscultation. HEART: S1 and S2 are distant. ABDOMEN: Soft and nontender. EXTREMITIES: No clubbing or cyanosis. LABORATORY DATA: WBC count 8.1, hemoglobin 12.6, platelets 251. Sodium 141, potassium 3.9, BUN 25, creatinine 1, magnesium 1.7. Initial troponin was 112, latest troponin was 687. Albumin 3.1. EKG was reported as non-STEMI. Chest x-ray shows no acute cardiopulmonary findings. ASSESSMENT AND PLAN: * Acute coronary syndrome, chest pain, abnormal cardiac enzymes, non-ST elevation myocardial infarction. The patient will be started on heparin drip, aspirin, Plavix. Eliquis will be placed on hold. Cardiology consultation was made. * Continue treatment for other comorbidities, type 2 diabetes, hypertension, dyslipidemia, anemia. The patient will be transferred to Dr. Tomlin's services. TID: [id number] RECEIPT: [id number]
--- NOTE | 2024-12-28 14:02 | NUR ---
ASSISTED OUT OF BED, RIGHT GROIN SOFT AND DRESSING DRY /INTACT. TOLERATED ACTIVITY WELL.
[2024-12-28 14:54] LABS: CREATINE KINASE, TOTAL 32 U/L (21-232)
[2024-12-28] MEDS: 0.9% NACL 500ML IV.SOLN 500 ML IV SCH (15:15)
[2024-12-28] MEDS: ASPIRIN 81 MG EC TAB PO SCH (15:15)
[2024-12-29 03:15] VITALS: BP 135/60; PULSE 69; RESP 18; TEMP 98.1
[2024-12-29] MEDS ORDERED: CLOP75TA32 PO (07:17)
[2024-12-29] MEDS ORDERED: METO-391 PO (07:17)
--- NOTE | 2024-12-29 07:27 | PN ---
Non-STEMI, troponin 600 range Multivessel coronary disease, calcified lesions, complex anatomy, no clear culprit lesion Diabetes Hypertension History of paroxysmal atrial fibrillation, previously treated with sotalol Hypercoagulable state related to atrial fibrillation, treated apixaban Patient has not experienced angina or dyspnea since hospitalization. She had on ly one episode of chest pain, and it lasted about 5 hours on the day of admission, and she had not experienced any fatigue on exertion, dyspnea on exertion, or chest pain prior to admission day. On review of previous records, the patient was followed by Dr. Alejo and last seen more than a year ago. She has been followed for paroxysmal atrial fibrillation untreated with sotalol and apixaban. Sotalol would be contraindicated with metoprolol, which I think we should provide for her infarct. Apixaban should be continued and I think we can combine clopidogrel with a, but I would not provide triple therapy with aspirin/clopidogrel/api xaban. We will leave her off aspirin for now for that reason. She was previously taking an ARB for hypertension and this will impact her cardiac prognosis favorably, so it will be continued. She should be treated to strict LDL standards, and Dr. Alejo can assess this at follow-up. The patient has multivessel coronary disease with some lesions that would be reasonable shockwave/VENITA targets and others that involve bifurcations or trifurcations or other complex anatomy. It remains to be seen whether coronary bypass would be necessary, given that the patient has no single critical lesion or obvious unstable plaque and had no symptoms before or after the day of her infarct. It appears she had a transient thrombosis of some sort which may be manageable with medicine. If intervention is necessary, given the ambiguity of what lesion is most important and the anatomy encountered, surgery may be favored over complex multivessel intervention. Physical exam today shows an obese patient with no JVD, no rales or rhonchi, nonlabored respiration, normal S1 and S2, no S3, no rub, no edema and no catheterization complications. My recommendation is to discharge the patient today on atorvastatin 40 mg, ARB as previously prescribed, apixaban 5 mg b.i.d., clopidogrel 75 mg daily, metoprolol succinate 50 mg p.o. q.a.m., Farxiga 10 mg daily, and other diabetic medications as appropriate. The patient should have follow-up with Dr. Alejo within two weeks, and he can assess lipids, review of the angiograms, and make a decision whether to continue medicinal therapy versus referral for revascularization. Vitals/Labs Vital Signs Date Time Temp Pulse Resp B/P (MAP) Pulse Ox O2 Delivery O2 Flow Rate FiO2 12/29/24 03:15 98.1 69 18 135/60 97 Room Air 12/28/24 21:15 0 21 Medications Current Medications Aspirin 325 mg ONCE ONCE PO; Start 12/27/24 at 19:00; Stop 12/27/24 at 19:01; Status DC Heparin Sodium/ Dextrose 250 ml @ 0 mls/hr PROTOCOL IV Last administered on 12/27/24at 20:05; Start 12/27/24 at 20:00; Stop 01/26/25 at 19:59 Heparin Sodium (Porcine) 5,000 unit ONCE ONCE IV Last administered on 12/27/24at 20:04; Start 12/27/24 at 20:00; Stop 12/27/24 at 20:01; Status DC Heparin Sodium (Porcine) 5,000 unit STK-MED ONCE .ROUTE; Start 12/27/24 at 19:56; Stop 12/27/24 at 19:56; Status DC Heparin Sodium/ Dextrose 250 ml @ As Directed STK-MED ONCE IV; Start 12/27/24 at 19:56; Stop 12/27/24 at 19:56; Status DC Pharmacy Profile Note 1 each ONCE MISC; Start 12/27/24 at 20:30; Stop 12/27/24 at 20:32; Status DC Clopidogrel Bisulfate 75 mg ONCE ONCE PO Last administered on 12/27/24at 23:11; Start 12/27/24 at 20:30; Stop 12/27/24 at 20:32; Status DC Clopidogrel Bisulfate 75 mg DAILY PO Last administered on 12/28/24at 15:15; Start 12/28/24 at 09:00; Stop 01/27/25 at 08:59 Aspirin 81 mg DAILY PO Last administered on 12/28/24at 15:15; Start 12/28/24 at 09:00; Stop 01/27/25 at 08:59 Nitroglycerin 0.4 mg AD PRN SL; Start 12/27/24 at 20:30; Stop 01/26/25 at 20:29 Lidocaine HCl 20 ml STK-MED ONCE .ROUTE; Start 12/28/24 at 08:19; Stop 12/28/24 at 08:19; Status DC Sodium Bicarbonate 50 ml @ As Directed STK-MED ONCE .ROUTE; Start 12/28/24 at 08:19; Stop 12/28/24 at 08:19; Status DC Iohexol 35,000 mg STK-MED ONCE IV; Start 12/28/24 at 08:19; Stop 12/28/24 at 08:19; Status DC Heparin Sodium (Porcine) 10,000 unit STK-MED ONCE .ROUTE; Start 12/28/24 at 08:19; Stop 12/28/24 at 08:19; Status DC Heparin Sodium/ Sodium Chloride 1,000 ml @ As Directed STK-MED ONCE IV; Start 12/28/24 at 08:19; Stop 12/28/24 at 08:19; Status DC Nitroglycerin 50 mg STK-MED ONCE .ROUTE; Start 12/28/24 at 08:19; Stop 12/28/24 at 08:19; Status DC Nicardipine HCl 25 mg STK-MED ONCE IV; Start 12/28/24 at 08:53; Stop 12/28/24 at 08:53; Status DC Fentanyl Citrate 100 mcg STK-MED ONCE .ROUTE; Start 12/28/24 at 09:04; Stop 12/28/24 at 09:04; Status DC Midazolam HCl 2 mg STK-MED ONCE .ROUTE; Start 12/28/24 at 09:04; Stop 12/28/24 at 09:04; Status DC Bivalirudin 250 mg STK-MED ONCE IV; Start 12/28/24 at 09:12; Stop 12/28/24 at 09:12; Status DC Iohexol 75 ml STK-MED ONCE IV; Start 12/28/24 at 09:27; Stop 12/28/24 at 09:28; Status DC Sodium Chloride 500 ml @ 150 mls/hr Q3H20M IV; Start 12/28/24 at 10:30; Stop 12/28/24 at 13:29; Status DC Metoprolol Tartrate 12.5 mg BID PO Last administered on 12/28/24at 21:57; Start 12/28/24 at 21:00; Stop 01/27/25 at 20:59 Atorvastatin Calcium 40 mg HS PO Last administered on 12/28/24at 21:57; Start 12/28/24 at 21:00; Stop 01/27/25 at 20:59 CORAL DARNELL MD Dec 29, 2024 07:27
[2024-12-29 07:42] VITALS: BP 125/68; PULSE 66; RESP 20; TEMP 98.7
[2024-12-29 08:45] VITALS: O2SAT 97
--- NOTE | 2024-12-29 10:22 | NUR ---
Morning dose of aspirin held as per patient request due to directions from Dr. Westfall. Dr. Westfall's note correlates with this information.
[2024-12-29 11:30] VITALS: BP 120/65; PULSE 65; RESP 20; TEMP 97.7
[2024-12-29 16:00] VITALS: BP 124/71; PULSE 70; RESP 20; TEMP 98.7
--- NOTE | 2024-12-29 17:58 | NUR ---
Patient was discharged, all discharged documentation and personal items taken by patient and daughter. Discharge order was given to Isa (Clinical Informatics Manager) via text by Dr. Welch. Patient informed to follow up in Dr. Tomlin's office on Wednesday for review of home medications. New scripts sent to [facility] in [place] as per patient request. IV and telemetry pack were removed by educational therapist Cecilio, patient transported out of facility via wheelchair by Telma Craig.
--- NOTE | 2025-01-01 21:48 | DS ---
Discharge Summary DIAGNOSE(S): [NSTEMI] HOSPITAL COURSE SUMMARY: [With no identifiable wall motion abnormality, EF greater than 75%, and only one episode of chest pain ever (prolonged chest pain yesterday, the infarct), plus diffuse calcified three-vessel disease, it is difficult to pick a target for intervention that would be highly probable to improve the patient's prognosis, and that would pose a reasonable risk/benefit proposition. None of the lesions is critical, all appear chronic, and we will treat the patient with beta-blockers/statins/dual antiplatelet therapy and eventually perform risk stratification with a perfusion scan.] BOBBIN LOOSE END FINDER(S): [Cardiology] PROCEDURE(S)/TREATMENT(S): [Heart catheterization] PROBLEM(S): [] FOLLOW-UP TEST(S): [] DISCHARGE INSTRUCTIONS: [Follow up in 1-2 days with PCP consider CABG if symptoms persist] Home Meds Active Scripts Clopidogrel Bisulfate (Clopidogrel) 75 Mg Tablet, 1 TAB PO DAILY for 30 Days, #30 TAB 0 Refills Prov:CORAL DARNELL MD 12/29/24 Metoprolol Succinate (Metoprolol Succinate) 50 Mg Tab.er.24h, 1 TAB PO DAILY for 30 Days, #30 TAB 0 Refills Prov:CORAL DARNELL MD 12/29/24 Reported Medications Donepezil HCl (Donepezil HCl) 5 Mg Tablet, 1 TAB PO DAILY 12/28/24 Insuln Asp Prt/Insulin Aspart (Novolog Mix 70-30 Flexpen Syrn) 100 Unit/Ml (70- 30) Insuln.pen, 25 UNITS SQ HS 06/05/23 Dapagliflozin Propanediol (Farxiga) 10 Mg Tablet, 10 MG PO DAILY, TAB 03/01/23 Insuln Asp Prt/Insulin Aspart (Novolog Mix 70-30 Vial) 100 Unit/Ml (70-30) Vial, 20 UNITS SQ AM, VIAL 05/31/18 Apixaban (Eliquis) 5 Mg Tablet, 5 MG PO BID, TAB 05/31/18 Levothyroxine Sodium (Levothyroxine Sodium) 50 Mcg Tablet, 50 MCG PO ACBKFST, TAB 05/31/18 Losartan Potassium (Losartan Potassium) 25 Mg Tablet, 25 MG PO DAILY, TAB 05/31/18 Atorvastatin Calcium (Atorvastatin Calcium) 40 Mg Tablet, 40 MG PO HS, TAB 05/31/18 Metformin HCl (Metformin HCl) 1,000 Mg Tablet, 1000 MG PO BIDMEALS, TAB 05/31/18 Discontinued Reported Medications Sotalol HCl (Sotalol) 80 Mg Tablet, 80 MG PO BID, TAB 10/01/18 Honey (Medihoney) 80 % Gel..ml., 15 ML TP DAILY 06/10/23 Clopidogrel Bisulfate (Clopidogrel) 75 Mg Tablet, 1 TAB PO DAILY 06/05/23 Ferrous Sulfate (Iron) 325 Mg (65 Mg Iron) Tablet, 325 MG PO DAILY, TAB 03/01/23 Dulaglutide (Trulicity) 1.5 Mg/0.5 Ml Pen.injctr, 1.5 MG SQ QWEEK PT TAKES QWE09/30/18 ROBERTA ESTRELLA MD Jan 01, 2025 21:48
== END 2024-12-29 17:50 | disposition home or self-care (01) | DRG 281 ==
LOC: EDH 17:52 → EEVIPCON 17:52 → EDHIP 20:15 → 2AH 12-28 00:40
PROVIDERS: ADMIT Internal Medicine; ATTEND Internal Medicine
PROC: 4A023N7 Measurement of Cardiac Sampling and Pressure, Left Heart, Percutaneous Approach (ICD-10-PCS; principal; 2024-12-28)
PROC: B2111ZZ Fluoroscopy of Multiple Coronary Arteries using Low Osmolar Contrast (ICD-10-PCS; 2024-12-28)
PROC: B2151ZZ Fluoroscopy of Left Heart using Low Osmolar Contrast (ICD-10-PCS; 2024-12-28)
DX: I21.4 Non-ST elevation (NSTEMI) myocardial infarction (principal); D68.69 Other thrombophilia; D64.9 Anemia, unspecified; E11.51 Type 2 diabetes mellitus with diabetic peripheral angiopathy without gangrene; E78.00 Pure hypercholesterolemia, unspecified; I10 Essential (primary) hypertension; I48.0 Paroxysmal atrial fibrillation; Z83.3 Family history of diabetes mellitus; Z79.01 Long term (current) use of anticoagulants; Z82.49 Family history of ischemic heart disease and other diseases of the circulatory system
CPT/HCPCS: 36415; 71045; 80048; 80053; 81001; 82550; 82948; 83735; 84484; 85025; 85610; 85730; 87086; 87186; 93005; 93458; 96374; 99156; 99157; 99285; C1894; G0378; J0583; J1644; J2250; J3010; J3490; Q9967; C1760; Q9965